=== PATIENT | male | born 1975 | race Caucasian/White ===

== ENCOUNTER 2016-10-26 22:52 | Inpatient (IN) | payer OTHER ==
[~2016-10-26] VITALS: Ht 185.4 cm; Wt 83.9 kg
[~2016-10-26 22:52] MED LIST: NO REPORTED MEDS
--- NOTE | 2016-10-26 22:52 | NUR ---
TO BED 3 BIB PARAMEDICS C/O SEIZURE, OCCIPITAL HEMATOMA NOTED. RECEIVE PT AAOX4 NO ACUTE DISTRESS NOTED, RESP EVEN AND UNLABORED. PIPILS PERRL, PT ABLE TO MOVE ALL EXTREMITIES WELL WITH BILATERAL EQUAL GEOGRAPHY FACULTY MEMBER. PLACE PT ON CARDIAC MONITORING, CONTINUOUS POX, O2@2L/NC. PLACE PT ON SEIZURE PRECAUTION. SL 18G TO L FOREARM CHEMICAL PROCESSING TECHNICIAN. ER MD AT BEDSIDE TO EVAL PT WITH ORDERS RECEIVED. WILL CARRY OUT ORDERS.
[2016-10-26] MEDS ORDERED: phenytoin SODIUM IV 1,000 MG in IV NS 0.9% 100 ML IV ONE (23:00)
[2016-10-26] MEDS ORDERED: phenytoin SODIUM IV 250 MG/5 ML VIAL IV ONE ×2 (23:07→23:08)
[2016-10-26] MEDS ORDERED: IV NS 0.9% 100 ML IV ONE (23:08)
[2016-10-26] MEDS ORDERED: IV NS 0.9% 500 ML IV ONE (23:08)
[2016-10-26] MEDS ORDERED: IV SET PRIMARY PUMP SET 1 EA INFUS.SET MC ONE (23:08)
[2016-10-26] MEDS ORDERED: IV FILTER 5 MICRON 1 EA INFUS.SET MC ONE (23:10)
[2016-10-26 23:28] LABS: EOSINOPHILS # (AUTO) 0.1 /CMM (0.0-0.7); EOSINOPHILS % (AUTO) 0.6 % (0.0-6.0); HEMATOCRIT 38 % (39-51); HEMOGLOBIN 12.7 g/dL (13.5-17.5); LYMPHOCYTES # (AUTO) 0.4 /CMM (0.8-4.8); LYMPHOCYTES % (AUTO) 3.7 % (20.0-44.0); MEAN CORPUSCULAR HEMOGLOBIN 31 PG (26.0-33.0); MEAN CORPUSCULAR HGB CONC 34 g/dl (31.0-36.0); MEAN CORPUSCULAR VOLUME 93 fL (80-96); MONOCYTES # (AUTO) 0.6 /CMM (0.1-1.30); MONOCYTES % (AUTO) 5.1 % (2.0-12.0); NEUTROPHILS # (AUTO) 10.9 /CMM (1.8-8.9); NEUTROPHILS % (AUTO) 90.6 % (43.0-81.0); PLATELET COUNT (AUTO) 93 /CMM (150-450); RDW COEFFICIENT OF VARIATION 14.8 (11.5-15.0); RED BLOOD CELL COUNT(AUTO) 4.07 MIL/uL (4.5-6.0)
[2016-10-26] MEDS ORDERED: IV NS 0.9% 500 ML BAG IV ONE (23:30)
[2016-10-26 23:35] LABS: CALCIUM, SERUM 8.9 mg/dL (8.5-10.1); CREATININE 0.9 mg/dL (0.6-1.3); POTASSIUM 3.7 mmol/L (3.5-5.1)
--- NOTE | 2016-10-26 23:39 | NUR ---
PT TRANSPORTED TO RADIOLOGY FOR CT HEAD AND CT CERVICAL SPINE.
[2016-10-26 23:41] LABS: ALBUMIN 4.2 g/dL (3.4-5.0); BILIRUBIN,DIRECT 0.4 mg/dL (0.0-0.2); BILIRUBIN,TOTAL 1.1 mg/dL (0.2-1.0); TOTAL PROTEIN, SERUM 8.3 g/dL (6.4-8.2)
--- NOTE | 2016-10-27 | NUR ---
PT BACK FROM RADIOLOGY. PENDING CT RESULTS.
[2016-10-27 00:10] LABS: LYMPHOCYTES % (MANUAL) 5 % (16-48); MONOCYTES % (MANUAL) 8 % (0-11.0); NEUTROPHILS % (MANUAL) 87 (42-76)
[2016-10-27] MEDS ORDERED: LORAZEPAM INJ 2 MG/ML VIAL ONE ×2 (00:12→05:35)
--- NOTE | 2016-10-27 00:13 | NUR ---
NOTED PT HAVING SEIZURE, ER MD MADE AWARE. ODERS RECEIVED.
--- NOTE | 2016-10-27 00:17 | NUR ---
PT MEDICATED BY RN PER ER MD ORDER.
[2016-10-27 00:54] LABS: APPEARANCE,URINE CLEAR (CLEAR); BILIRUBIN,URINE NEGATIVE (NEGATIVE); BLOOD, URINE 2+ Ery/uL (NEGATIVE); COLOR,URINE YELLOW (YELLOW); KETONES,URINE TRACE (NEGATIVE); LEUKOCYTE ESTERASE ,URINE NEGATIVE (NEGATIVE); NITRITE, URINE NEGATIVE (NEGATIVE); PROTEIN,URINE 2+ mg/dl (NEGATIVE); UGLUCOSE NEGATIVE (NEGATIVE); UROBILINOGEN,URINE 0.2 EU/dL (0.2)
[2016-10-27] MEDS ORDERED: LORAZEPAM INJ 2 MG/ML VIAL IV ONE (01:00)
--- NOTE | 2016-10-27 01:00 | NUR ---
ER SPOKE TO RADIOLOGIST REGARDING CT HEAD RESULT.
[2016-10-27 01:06] LABS: BACTERIA,URINE None seen /HPF (None Seen); MUCUS,URINE Few /LPF (None Seen); SQUAMOUS EPITHELIAL CELL,UR Rare /HPF (None Seen); WBC,URINE NONE SEEN /HPF (0-3)
--- NOTE | 2016-10-27 01:21 | NUR ---
PANEL PAGED PER ER MD ORDER.
--- NOTE | 2016-10-27 01:39 | NUR ---
REPORT CALLED TO TELE 1 GAVI RUCKER. PENDING HOSPITAL ADMISSION.
--- NOTE | 2016-10-27 02:15 | NUR ---
BERENICE RN INITIAL NOTE RECEIVED REPORT FROM ED ER NURSE. PT ARRIVED VIA GURNEY WITH EMT. PT IN BED. AT BEDSIDE. PT IS A/O X4 BUT SLOW TO RESPOND. PT HAS A HEMATOMA ON OCCIPITAL HEAD, PICTURE TAKEN AND REDRESS. PT HAS A LOW GRADE TEMP 100.3, WILL REQUEST ORDERS. LUNGS CLEAR. BOWEL SOUNDS PRESENT. IV PATENT AND INTACT. PULSES PRESENT. BED IN LOW LOCKED POSITION. CALL LIGHT WITHIN REACH. WILL CONTINUE TO MONITOR. WILL BRING IN MED LIST FROM HOME LATER, PT STATES HE TAKES MEDICATION FOR HTN, DEPRESSION, SLEEP, AND GERD; NAMES AND DOSES UNKNOWN.
[2016-10-27 02:20] VITALS: BP 153/88
[2016-10-27] MEDS ORDERED: HYDROCODONE/APAP 5/325MG 1 EACH TABLET PO PRN (03:00)
[2016-10-27] MEDS ORDERED: ONDANSETRON HCL/PF 4 MG/2 ML VIAL IVP PRN (03:00)
[2016-10-27] MEDS ORDERED: MAGNESIUM HYDROXIDE 30 ML UDC PO PRN (03:00)
[2016-10-27] MEDS ORDERED: Z GUARD REMEDY 2 OZ OINT TP PRN (03:00)
[2016-10-27] MEDS ORDERED: LORAZEPAM INJ 2 MG/ML VIAL IV PRN ×2 (03:00→12:30)
[2016-10-27] MEDS ORDERED: MAG HYDROX/AL HYDROX/SIMETH 30 ML UDC PO PRN (03:00)
[2016-10-27] MEDS ORDERED: ZOLPIDEM TARTRATE 5 MG TABLET PO PRN (03:00)
[2016-10-27] MEDS ORDERED: ACETAMINOPHEN 325 MG TABLET PO PRN (03:00)
[2016-10-27] MEDS ORDERED: ACETAMINOPHEN 325 MG TABLET ONE (03:03)
[2016-10-27 04:00] VITALS: BP 144/97
--- NOTE | 2016-10-27 05:30 | NUR ---
BERENICE RN PT CONTINUES TO HAVE FEVER 100.3. PROVIDED COOLING MEASURES. ATIVAN WILL BE ADMINISTERED FOR SHIVERING. WILL CONTINUE TO MONITOR.
--- NOTE | 2016-10-27 06:35 | NUR ---
NON ADMIN- FOR PATIENT SAFETY.
[2016-10-27 08:00] VITALS: BP 153/95
[2016-10-27] MEDS: PANTOPRAZOLE 40 MG TABLET.DR PO SCH (08:38)
--- NOTE | 2016-10-27 08:48 | NUR ---
RN BERENICE PATIENT CONTINUOUS TREMBLING EPISODE NOTED HE IS OK AT THE MOMENT VERBALIZED BY THE PATIENT NO OTHER PROBLEM SEEN FOR THE MEANTIME
[2016-10-27] MEDS ORDERED: METO25TA20 PO (11:24)
[2016-10-27] MEDS ORDERED: PANT40TA4 PO (11:24)
[2016-10-27] MEDS ORDERED: GABA-532 PO (11:24)
[2016-10-27] MEDS ORDERED: PENT400T2 PO (11:24)
[2016-10-27] MEDS ORDERED: HYDR-3028 PO (11:24)
[2016-10-27] MEDS ORDERED: [UNRECOGNIZED DRUG - CODE] PO (11:25)
[2016-10-27 12:00] VITALS: BP 147/99
[2016-10-27] MEDS ORDERED: IV NS 0.9% 1,000 ML BAG IV PRN (12:30)
[2016-10-27] MEDS ORDERED: PANTOPRAZOLE 40 MG TABLET.DR PO SCH (12:30)
[2016-10-27] MEDS ORDERED: hydrOXYzine PAMOATE 25 MG CAPSULE PO PRN (12:30)
[2016-10-27] MEDS ORDERED: IV SET PRIMARY PUMP SET 1 EA INFUS.SET MC ONE (13:11)
[2016-10-27] MEDS: GABAPENTIN 100 MG CAPSULE PO SCH ×2 (13:20→16:39)
[2016-10-27] MEDS: PENTOXIFYLLINE 400 MG TABLET.SA PO SCH ×2 (13:20→16:39)
[2016-10-27] MEDS: predniSONE 20 MG TABLET PO SCH (13:20)
[2016-10-27] MEDS: IV NS 0.9% 1,000 ML IV PRN (13:20)
[2016-10-27] MEDS: THIAMINE HCL 100 MG TABLET PO SCH (13:21)
[2016-10-27] MEDS ORDERED: METOPROLOL TARTRATE 25 MG TABLET PO STA (15:46)
[2016-10-27 16:00] VITALS: BP 152/107
--- NOTE | 2016-10-27 19:15 | NUR ---
RN INITIAL NOTES PT IS IN BED, NO COMPLAINTS OF PAIN, A/O X3, FAMILY AT BEDSIDE. LFA IV SITE IS FLUSHED AND PATENT, PT ABLE IS ABLE TO MOVE ALL FOUR EXTREMITIES, INDEPENDENTLY, WILL MONITOR CLOSELY FOR ANY SEIZURE ACTIVITY, BED LOCKED AND IN LOWEST POSITION, CALL LIGHTS WITHIN REACH.
[2016-10-27 20:00] VITALS: BP 143/91
--- NOTE | 2016-10-27 20:30 | NUR ---
RN NOTES REPORT GIVEN TO OSCAR WALLACE RN.
[2016-10-28] VITALS: BP 135/98
[2016-10-28] MEDS: IV NS 0.9% 1,000 ML IV PRN (03:12)
[2016-10-28 04:00] VITALS: BP 150/78
--- NOTE | 2016-10-28 06:18 | NUR ---
RN CLOSING NOTES PT IS IN BED, NO COMPLAINTS OF PAIN, A/O X3, FAMILY AT BEDSIDE. LFA IV SITE IS FLUSHED AND PATENT, PT ABLE IS ABLE TO MOVE ALL FOUR EXTREMITIES, INDEPENDENTLY, WILL MONITOR CLOSELY FOR ANY SEIZURE ACTIVITY, BED LOCKED AND IN LOWEST POSITION, CALL LIGHTS WITHIN REACH.
[2016-10-28] MEDS: PANTOPRAZOLE 40 MG TABLET.DR PO SCH (06:43)
--- NOTE | 2016-10-28 06:58 | NUR ---
PT NOTED WITH EPISODES OF CONFUSION ,TAKING OFF MAPILEX CLEAN DRESSING OFF HIS OCCIPITAL AREA, RISK AND BENEFIT EXPLAINED OFFERED X3, REQUESTED TO REMOVE IV FLUIDS TEMPORALIY AT THIS TIME, WILL ENDORSE TO AM SHIFT TO PLACE IV FLUIDS BACK ON PT WHEN PT IS READY.
--- NOTE | 2016-10-28 07:25 | NUR ---
RN MS NOTES PATIENT IN BED, ALERT AND ORIENTED, FOUND PATIENT PLAYING WITH THE TELE MONITOR, INSISTING THAT HE WILL GO HOME TODAY, PATIENT APPEARS TO BE RESTLESS, WALKING AROUND THE ROOM, ENCOURAGED PATIENT TO STAY IN BED, AND TO CALL FOR ASSISTANCE FOR SAFETY REASONS, CALL LIGHT PLACED WITHIN REACH, WILL CONTINUE TO MONITOR.
[2016-10-28 07:37] LABS: BASOPHILS % (AUTO) 0.2 % (0.0-2.0); EOSINOPHILS # (AUTO) 0.1 /CMM (0.0-0.7); EOSINOPHILS % (AUTO) 0.6 % (0.0-6.0); HEMATOCRIT 40 % (39-51); HEMOGLOBIN 13.6 g/dL (13.5-17.5); LYMPHOCYTES % (AUTO) 7.5 % (20.0-44.0); MEAN CORPUSCULAR HEMOGLOBIN 32 PG (26.0-33.0); MEAN CORPUSCULAR HGB CONC 34 g/dl (31.0-36.0); MEAN CORPUSCULAR VOLUME 93 fL (80-96); MONOCYTES # (AUTO) 1.3 /CMM (0.1-1.30); NEUTROPHILS # (AUTO) 11.5 /CMM (1.8-8.9); NEUTROPHILS % (AUTO) 82.7 % (43.0-81.0); PLATELET COUNT (AUTO) 119 /CMM (150-450); RED BLOOD CELL COUNT(AUTO) 4.28 MIL/uL (4.5-6.0); WHITE BLOOD COUNT (AUTO) 13.9 K/uL (4.3-11.0)
[2016-10-28 07:55] LABS: CALCIUM, SERUM 9.4 mg/dL (8.5-10.1); CREATININE 0.8 mg/dL (0.6-1.3); MAGNESIUM 2.1 mg/dL (1.8-2.4); PHOSPHORUS 2.2 mg/dL (2.5-4.9); POTASSIUM 3.1 mmol/L (3.5-5.1)
[2016-10-28 08:00] VITALS: BP 122/89
[2016-10-28 08:21] VITALS: BP 127/97
[2016-10-28] MEDS: PENTOXIFYLLINE 400 MG TABLET.SA PO SCH (08:22)
[2016-10-28] MEDS: GABAPENTIN 100 MG CAPSULE PO SCH (08:22)
[2016-10-28] MEDS: THIAMINE HCL 100 MG TABLET PO SCH (08:22)
[2016-10-28] MEDS: predniSONE 20 MG TABLET PO SCH (08:22)
[2016-10-28 08:34] LABS: INR 1.15 (0.87-1.13); PROTHROMBIN TIME 12.4 SECS (9.5-12.7)
[2016-10-28] MEDS ORDERED: METOPROLOL TARTRATE 25 MG TABLET PO SCH (09:00)
--- NOTE | 2016-10-28 09:53 | NUR ---
C PYTHON DEVELOPER/AMA PATIENT ALERT AND ORIENTED, CALM AT THIS TIME, BUT INSISTING ON LEAVING AGAINST MEDICAL ADVICE, ASHLY VIEIRA TIRE REPAIRMAN MADE AWARE, PER TIRE REPAIRMAN, ASK IF HE CAN WAIT FOR ME, IF NOT ITS FINE, PATIENT ASKED AND STATED "NO I DONT WANT TO WAIT, I HAVE TO GO SOMEWHERE" EXPLAINED RISKS AND BENEFITS, EDUCATED ABOUT POSSIBILITY OF HAVING SEIZURE EPISODES AGAIN, PATIENT VERBALIZED UNDERSTANDING, AND IS TAKING RESPONSIBILITY ONCE HE LEAVES THE HOSPITAL. PATIENT SIGNED AMA PAPERWORKS, PIV REMOVED, ALL BELONGINGS AND MEDICATIONS GIVEN TO PATIENT, LEFT THE FACILITY AT 0953.
[2016-10-28] MEDS ORDERED: POTASSIUM CHLORIDE 20 MEQ TAB.PRT.SR PO SCH (10:30)
== END 2016-10-28 09:53 | disposition left against medical advice (07) | DRG 55 ==
LOC: ER 22:53 → TELE-TD 10-27 01:43 → TELE1 10-27 10:03
PROVIDERS: ADMIT Internal Medicine; ATTEND Internal Medicine
DX: S06.5X0A Traumatic subdural hemorrhage without loss of consciousness, initial encounter (principal); D69.59 Other secondary thrombocytopenia; E46 Unspecified protein-calorie malnutrition; E87.1 Hypo-osmolality and hyponatremia; K70.10 Alcoholic hepatitis without ascites; F10.239 Alcohol dependence with withdrawal, unspecified; I10 Essential (primary) hypertension; S00.03XA Contusion of scalp, initial encounter; D64.9 Anemia, unspecified; G40.509 Epileptic seizures related to external causes, not intractable, without status epilepticus; D72.829 Elevated white blood cell count, unspecified; Y90.0 Blood alcohol level of less than 20 mg/100 ml; F14.90 Cocaine use, unspecified, uncomplicated; R74.8 Abnormal levels of other serum enzymes; W18.30XA Fall on same level, unspecified, initial encounter; Y93.9 Activity, unspecified; Y92.9 Unspecified place or not applicable; R74.0 Nonspecific elevation of levels of transaminase and lactic acid dehydrogenase [LDH]
CPT/HCPCS: 36415; 70450-TC; 71010-TC; 72125-TC; 80048-TC; 80076-TC; 80305; 81000-TC; 82962-TC; 83735-TC; 84100-TC; 85025-TC; 85610-TC; 85730-TC; 87081-TC; A4606; A6403; G0480; J1165; J2060; J7030; J7040; Z7610

== ENCOUNTER 2016-10-29 09:41 | Emergency (ER) | payer OTHER ==
[~2016-10-29] VITALS: Ht 185.4 cm; Wt 79.4 kg
[~2016-10-29 09:41] MED LIST changes: +GABA-532 PO; +HYDR-3028 PO; +METO25TA20 PO; -NO REPORTED MEDS; +PANT40TA4 PO; +PENT400T2 PO; +[UNRECOGNIZED DRUG - CODE] PO
--- NOTE | 2016-10-29 09:45 | NUR ---
PT TO ED ROOM 08. REQUESTING RESOURCES FOR ALCOHOL DETOX. A/A/O. AMBULATORY W/ STEADY GAIT AND WITHOUT ASSISTANCE. SIDE RAILS UP. HOB ELEVATED. SEEN AND EVALUATED BY ED PROVIDER.
--- NOTE | 2016-10-29 10:01 | NUR ---
Patient discharged to self care in stable condition. Written and verbal after care instructions given. Patient verbalizes understanding of instruction. Ambulatory with a steady gait.
[2016-10-29 10:06] VITALS: BP 168/115
== END 2016-10-29 10:17 | disposition home or self-care (01) ==
LOC: ER 09:42
DX: F10.239 Alcohol dependence with withdrawal, unspecified (principal); I10 Essential (primary) hypertension; K74.60 Unspecified cirrhosis of liver
CPT/HCPCS: A4606; Z7610

== ENCOUNTER 2019-12-24 12:37 | Inpatient (IN) | payer OTHER ==
[2019-12-24] VITALS (21 sets, daily range): BP systolic 131–156; BP diastolic 48–107
[~2019-12-24] VITALS: Ht 182.9 cm; Wt 93.4 kg
[~2019-12-24 12:37] MED LIST changes: -HYDR-3028 PO; +HYDR50TA61 PO; +PENT400T17 PO; -PENT400T2 PO
--- NOTE | 2019-12-24 12:42 | NUR ---
PT BIBRA FROM HOME TO ER BED . PER EMS REPORT, FAMILY CALLED NOTICED THE PATIENT HAVING CONVULSION. PT HAS HISTORY OF ALCOHOL ABUSE. PT IS AWAKE OPERATIONS TRAINER. C/O GENERALIZED FEELING OF "BEING SICK" NAUSEA, VOMITTED 3X THIS MORNING. STATES LAST ALCOHOL CONSUMPTION WAS YESTERDAY.
--- NOTE | 2019-12-24 12:50 | NUR ---
IV LINE STARTED BLOOD DRAWN AND SENT TO LAB.
--- NOTE | 2019-12-24 12:59 | NUR ---
DR MONTOYA AT BEDSIDE FOR EVAL.
[2019-12-24] MEDS ORDERED: IV NS 0.9% 1,000 ML BAG IV ONE (13:00)
[2019-12-24] MEDS ORDERED: LORAZEPAM INJ 2 MG/ML VIAL IVP ONE (13:00)
[2019-12-24 13:04] LABS: MEAN CORPUSCULAR VOLUME 77 fL (80-96); NEUTROPHILS # (AUTO) 4.8 /CMM (1.8-8.9)
[2019-12-24] MEDS ORDERED: LORAZEPAM INJ 2 MG/ML VIAL ONE ×2 (13:04→14:11)
[2019-12-24 13:07] LABS: BASOPHILS # (AUTO) 0.1 /CMM (0.0-0.2); EOSINOPHILS % (AUTO) 1.1 % (0.0-6.0); LYMPHOCYTES # (AUTO) 1.5 /CMM (0.8-4.8); LYMPHOCYTES % (AUTO) 20.9 % (20.0-44.0); MEAN CORPUSCULAR HGB CONC 31 g/dl (31.0-36.0); MONOCYTES # (AUTO) 0.8 /CMM (0.1-1.30); PLATELET COUNT (AUTO) 113 /CMM (150-450); RED BLOOD CELL COUNT(AUTO) 2.41 MIL/uL (4.5-6.0); WHITE BLOOD COUNT (AUTO) 7.3 K/uL (4.3-11.0)
[2019-12-24 13:09] LABS: HEMATOCRIT 19 % (39-51); HEMOGLOBIN 5.7 g/dL (13.5-17.5)
--- NOTE | 2019-12-24 13:16 | NUR ---
PT TO RADIOLOGY FOR HEAD CT SCAN VIA [facility].
[2019-12-24] MEDS ORDERED: ASCO-352 PO (13:19)
[2019-12-24] MEDS ORDERED: MULT1TAB69 PO (13:19)
[2019-12-24] MEDS ORDERED: FERR325T6 PO (13:19)
[2019-12-24] MEDS ORDERED: LISI10TA5 PO (13:19)
[2019-12-24] MEDS ORDERED: METO-357 PO (13:19)
[2019-12-24] MEDS ORDERED: ATOR40TA PO (13:19)
[2019-12-24 13:22] LABS: BILIRUBIN,DIRECT 0.4 mg/dL (0.0-0.2); CALCIUM, SERUM 8.4 mg/dL (8.5-10.1); POTASSIUM 3.7 mmol/L (3.5-5.1); TOTAL PROTEIN, SERUM 7.5 g/dL (6.4-8.2)
[2019-12-24 13:28] LABS: LYMPHOCYTES % (MANUAL) 17 % (16-48); MONOCYTES % (MANUAL) 8 % (0-11.0); NEUTROPHILS % (MANUAL) 75 (42-76)
--- NOTE | 2019-12-24 13:41 | NUR ---
CALLED NURSING SUP REQUESTING BED.
[2019-12-24] MEDS ORDERED: PANTOPRAZOLE 40 MG VIAL ONE (13:58)
[2019-12-24] MEDS ORDERED: OCTREOTIDE 1,250 MCG in IV NS 0.9% 247.5 ML IV PRN (14:00)
[2019-12-24] MEDS ORDERED: OCTREOTIDE 50 MCG/ML AMPUL IV ONE (14:00)
[2019-12-24] MEDS ORDERED: PANTOPRAZOLE 80 MG in IV NS 0.9% 100 ML IV ONE (14:00)
[2019-12-24] MEDS ORDERED: OCTREOTIDE 1,250 MCG in IV NS 0.9% 250 ML IV ONE (14:00)
[2019-12-24] MEDS ORDERED: LORAZEPAM INJ 2 MG/ML VIAL IV ONE (14:30)
[2019-12-24] MEDS ORDERED: OCTREOTIDE 50 MCG in IV NS 0.9% 50 ML IJ ONE (14:30)
--- NOTE | 2019-12-24 14:45 | NUR ---
CALLED [employer] PACKAGE LINE RELIEF OPERATOR WAS PAGED.
--- NOTE | 2019-12-24 15:04 | NUR ---
COVID19 RESULT NEGATIVE
--- NOTE | 2019-12-24 15:12 | NUR ---
ICU 254
--- NOTE | 2019-12-24 15:19 | NUR ---
REPORT GIVEN TO ÁNGELA GATICA. AWAITING TRANSFER TO ICU.
[2019-12-24] MEDS ORDERED: HYDROCODONE/APAP 5/325MG TABLET PO PRN (15:30)
[2019-12-24] MEDS ORDERED: ZOLPIDEM TARTRATE 5 MG TABLET PO PRN (15:30)
[2019-12-24] MEDS ORDERED: PANTOPRAZOLE 80 MG in IV NS 0.9% 500 ML IV PRN (15:30)
[2019-12-24] MEDS ORDERED: Z GUARD REMEDY 2 OZ OINT TP PRN (15:30)
[2019-12-24] MEDS ORDERED: ACETAMINOPHEN 325 MG TABLET PO PRN (15:30)
[2019-12-24] MEDS ORDERED: MAG HYDROX/AL HYDROX/SIMETH 30 ML UDC PO PRN (15:30)
[2019-12-24] MEDS ORDERED: ONDANSETRON HCL/PF 4 MG/2 ML VIAL IVP PRN (15:30)
[2019-12-24] MEDS ORDERED: MAGNESIUM HYDROXIDE 30 ML UDC PO PRN (15:30)
[2019-12-24] MEDS: OCTREOTIDE 1,250 MCG in IV NS 0.9% 247.5 ML IV PRN (16:30)
[2019-12-24] MEDS: IV NS 0.9% 1,000 ML IV PRN (16:30)
--- NOTE | 2019-12-24 16:30 | NUR ---
received pt from ER, s/p GI bleed, a/o x4, follows commands, ST, on RA, lungs are clear, no edema, NPO, on Sandostatin drip, blood transfusion started for h/h .11/28, v/s stable, no pain, one dark stool, urinates in urinal, pt turns and repositions by himself.
--- NOTE | 2019-12-24 19:30 | NUR ---
RN OPENING NOTES: PATIENT AAOX4. NO ACUTE DISTRESS NOTED. NO C/O PAIN. 1 PRBC BLOOD TRANSFUSION COMPLETED. IN STABLE CONDITION. NO ADVERSE REACTIONS AT THIS TIME. NO S/S OF BLEEDING. DENIES N/V. UNLABORED BREATHING. ON BEDSIDE MONITOR; SINUS TACHY. AFEBRILE. PATIENT IS BLADDER/BOWEL CONTINENT AND USES URINAL AND BEDSIDE COMMODE. LEFT FOREARM G20 AND RIGHT HAND G18 C/D/I; FLUSHING WELL. SAFETY PRECAUTIONS IMPLEMENTED. BED LOCKED, LOW POSITION, BILATERAL SIDE RAILS X 2 UP, HOB ELEVATED. CALL LIGHT WITHIN REACH. WILL CONT. TO MONITOR.
--- NOTE | 2019-12-24 21:03 | NUR ---
RN NOTE: AT 2102, PATIENT STARTED 2ND UNIT OF PRBC ORDERED. WITNESSED BY ANOTHER RN KARLEY. VITAL SIGNS CHECKED. NO S/S OF ADVERSE REACTIONS NOTED AT THIS TIME. WILL CONT. TO MONITOR.
--- NOTE | 2019-12-24 23:22 | NUR ---
RN NOTE: PATIENT HAS SCHEDULED PROTONIX IV AT 2300; PATIENT RECEIVED PROTONIX 80 MG IV IN ER AROUND 1400. JOSUE PHARMACIST MADE AWARE. PER PHARMACIST, IT IS STILL OKAY TO GIVE PROTONIX. CHARGE NURSE AWARE.
[2019-12-24] MEDS: PANTOPRAZOLE 40 MG VIAL IV SCH (23:35)
[2019-12-24] MEDS: LORAZEPAM INJ 2 MG/ML VIAL IV PRN (23:35)
[2019-12-25] VITALS (34 sets, daily range): BP systolic 126–174; BP diastolic 48–130
--- NOTE | 2019-12-25 00:02 | NUR ---
RN NOTE: 2ND UNIT OF PRBC TRANSFUSION COMPLETED. NO ADVERSE REACTION NOTED AT THIS TIME. WILL CONT. TO MONITOR.
[2019-12-25 01:17] LABS: HEMOGLOBIN 7.1 g/dL (13.5-17.5)
[2019-12-25] MEDS: OCTREOTIDE 1,250 MCG in IV NS 0.9% 247.5 ML IV PRN ×3 (01:51→20:59)
[2019-12-25 04:37] LABS: BASOPHILS % (AUTO) 0.3 % (0.0-2.0); EOSINOPHILS % (AUTO) 0.4 % (0.0-6.0); HEMATOCRIT 21 % (39-51); LYMPHOCYTES # (AUTO) 0.7 /CMM (0.8-4.8); LYMPHOCYTES % (AUTO) 10.7 % (20.0-44.0); MEAN CORPUSCULAR HGB CONC 33 g/dl (31.0-36.0); MEAN CORPUSCULAR VOLUME 79 fL (80-96); MONOCYTES % (AUTO) 15.3 % (2.0-12.0); NEUTROPHILS # (AUTO) 4.6 /CMM (1.8-8.9); NEUTROPHILS % (AUTO) 73.3 % (43.0-81.0); PLATELET COUNT (AUTO) 87 /CMM (150-450); RED BLOOD CELL COUNT(AUTO) 2.63 MIL/uL (4.5-6.0); WHITE BLOOD COUNT (AUTO) 6.2 K/uL (4.3-11.0)
[2019-12-25 05:11] LABS: HEMOGLOBIN 6.8 g/dL (13.5-17.5)
[2019-12-25 05:12] LABS: LYMPHOCYTES % (MANUAL) 6 % (16-48); MONOCYTES % (MANUAL) 9 % (0-11.0); NEUTROPHILS % (MANUAL) 85 (42-76)
[2019-12-25 05:17] LABS: ALBUMIN 3.4 g/dL (3.4-5.0); BILIRUBIN,DIRECT 0.5 mg/dL (0.0-0.2); BILIRUBIN,TOTAL 1.5 mg/dL (0.2-1.0); CALCIUM, SERUM 7.7 mg/dL (8.5-10.1); CREATININE 0.8 mg/dL (0.6-1.3); MAGNESIUM 1.8 mg/dL (1.8-2.4); PHOSPHORUS 2.7 mg/dL (2.5-4.9); POTASSIUM 3.8 mmol/L (3.5-5.1); TOTAL PROTEIN, SERUM 6.7 g/dL (6.4-8.2)
[2019-12-25 05:48] LABS: THYROID STIMULATING HORMONE 0.167 uIU/mL (0.358-3.74)
--- NOTE | 2019-12-25 05:50 | NUR ---
RN NOTE: RECEIVED CRITICAL H/H 6.12/31. CHARGE NURSE AWARE. STANDING ORDER TO TRANSFUSE PRBC AND KEEP HGB <7. Addendum: 12/26/19 at 2248 by JAM HEWITT RN CORRECTION: KEEP HGB >7.
[2019-12-25] MEDS: IV NS 0.9% 1,000 ML IV PRN ×2 (06:21→19:37)
--- NOTE | 2019-12-25 06:56 | NUR ---
RN CLOSING NOTES: PATIENT AWAKE AND VERBALLY RESPONSIVE. NO RESPIRATORY DISTRESS. NO C/O PAIN. CONT. ON SANDOSTATIN DRIP AT 50 MLS/HR. PATIENT NEEDS ANOTHER BLOOD TRANSFUSION. NO ACTIVE BLEEDING AT THIS TIME. ENDORSE TO AM RN FOR CONTINUITY OF CARE.
--- NOTE | 2019-12-25 08:14 | NUR ---
received pt from mold shifter, s/p GI bleed, a/o x4, follows commands, ST, SR, on RA, sat well, lungs are clear, no edema, receiving blood transfusion for h/h of 6.12/31, on Sandostatin drip, urinated in urinal, NPO, no dark/bloody stool since 12/23, v/s stable, no pain, pt turns and repositions by himself.
[2019-12-25] MEDS: PANTOPRAZOLE 40 MG VIAL IV SCH ×2 (10:08→21:21)
--- NOTE | 2019-12-25 10:58 | NUR ---
1 unit of PRBCs transfused, v/s stable, no pain, no transfusion reactions.
[2019-12-25 12:19] LABS: HEMOGLOBIN 8.1 g/dL (13.5-17.5)
[2019-12-25] MEDS ORDERED: hydrALAZINE HCL IV 20 MG VIAL IV PRN (13:30)
--- NOTE | 2019-12-25 15:11 | NUR ---
pt transferred to [facility], v/s stable, no pain.
--- NOTE | 2019-12-25 15:15 | NUR ---
COTTAGE PARENT NOTES Received Patient resting in bed. A/O x 4. VS stable with no acute distress. Breathing even and unlabored on room air with no respiratory distress. Denies pain. No signs and symptoms of pain. Telemonitor in place and patent reading Sinus Tach with HR-103. 20g PIV on LFA clean, intact, patent and flushing well. 18g PIV on right hand clean, intact, patent and flushing well with NS infusing at 100ml/hr and Sandostatin infusing at 10ml/hr. Safety precautions in place. Bed locked and set to lowest position with side rails x 2 up. All needs rendered at this time. Call light within reach. Will continue to monitor.
[2019-12-25] MEDS: ATORVASTATIN 40 MG TABLET PO SCH (17:31)
--- NOTE | 2019-12-25 19:01 | NUR ---
MANAGING ATTORNEY CLOSING NOTES Received Patient resting in bed. A/O x 4. VS stable with no acute distress. Breathing even and unlabored on room air with no respiratory distress. Denies pain. No signs and symptoms of pain. Telemonitor in place and patent reading Sinus Tach with HR-122. 20g PIV on LFA clean, intact, patent and flushing well. 18g PIV on right hand clean, intact, patent and flushing well with NS infusing at 100ml/hr and Sandostatin infusing at 10ml/hr. Safety precautions in place. Bed locked and set to lowest position with side rails x 2 up. All needs rendered at this time. Call light within reach. Will endorse plan of care to oncoming shift.
--- NOTE | 2019-12-25 19:25 | NUR ---
ENGLISH PROFESSOR OPENING NOTES: RECEIVED PATIENT IN BED, AWAKE A/O X4. NO SOB NOTED. NO COMPLAIN OF PAIN. CALL LIGHT WITHIN REACH. BED IN LOWEST AND LOCKED POSITION. INSTRUCTED PATIENT TO CALL WHEN OOB FOR ASSISTANCE,PATIENT VERBALIZED" NO I CAN WALK, I'VE BEEN WALKING BY MYSELF".NPO,PATIENT INSTRUCTED AND PRACTICE DIRECTOR AWARE.
--- NOTE | 2019-12-25 21:06 | NUR ---
RECEIVED A CALL FROM PHARMACY NAMED NANCY, WITH THE INSTRUCTION TO HANG A NEW BAG OF SANDOSTATIN, DONE. PATIENT JUST FINISHED BEDBATH BY HIMSELF, OFFERED HELP PATIENT DECLINED. PATIENT WASHED HIS SOCKS, OFFERED A BAG,PATIENT REFUSED. SOME WATER SPILLS ON THE FLOOR, CLEANED IT AND DRIED.
--- NOTE | 2019-12-25 21:51 | NUR ---
BP RECHECKED= 137/102, INFORMED DR URENA, WAITING FOR THE RESPONSE.
--- NOTE | 2019-12-25 21:53 | NUR ---
RESPONDED, JUST TO MONITOR. NO ORDER.
[2019-12-26] VITALS: BP 145/103
[2019-12-26 04:00] VITALS: BP 133/106
[2019-12-26] MEDS: IV NS 0.9% 1,000 ML IV PRN ×2 (06:00→21:10)
--- NOTE | 2019-12-26 06:14 | NUR ---
RECORDINGS LIBRARIAN CLOSING NOTES: PATIENT IN BED, AWAKE. A/O X4. AMBULATORY. STEADY GAIT. CALL LIGHT WITHIN REACH.BED IN LOWEST AND LOCKED POSITION. PATIENT WAS UPSET BECAUSE HE WANTS TO HAVE SOMETHING TO DRINK, EXPLAINED NPO AND THE PURPOSE OF IT. DR MEJIA ORDERED PATIENT CAN HAVE VERY SMALL AMOUNT OF ICE CHIPS, EXPLAINED TO THE PATIENT, VERBALIZED UNDERSTANDING.NO BLEEDING NOTED. PATIENT SHOWING SOME LITTLE TREMORS.
[2019-12-26 07:40] LABS: BASOPHILS # (AUTO) 0.1 /CMM (0.0-0.2); BASOPHILS % (AUTO) 0.8 % (0.0-2.0); EOSINOPHILS % (AUTO) 1.7 % (0.0-6.0); HEMATOCRIT 25 % (39-51); HEMOGLOBIN 8.1 g/dL (13.5-17.5); LYMPHOCYTES # (AUTO) 0.7 /CMM (0.8-4.8); MEAN CORPUSCULAR HGB CONC 32 g/dl (31.0-36.0); MEAN CORPUSCULAR VOLUME 81 fL (80-96); MONOCYTES # (AUTO) 1.1 /CMM (0.1-1.30); NEUTROPHILS # (AUTO) 4.7 /CMM (1.8-8.9); NEUTROPHILS % (AUTO) 70.5 % (43.0-81.0); PLATELET COUNT (AUTO) 118 /CMM (150-450); RED BLOOD CELL COUNT(AUTO) 3.13 MIL/uL (4.5-6.0); WHITE BLOOD COUNT (AUTO) 6.6 K/uL (4.3-11.0)
--- NOTE | 2019-12-26 07:44 | NUR ---
PAPER SALES REPRESENTATIVE OPENING NOTES PATIENT IS A/0 X 4 AWAKE WITH NO SIGNS OF DISTRESS IN ROOM AIR. IV R HAND #18G RUNNING NS AT 100 MLS/HR AND L FA #20G INTACT SL. NO COMPLAINT OF PAIN OR DISCOMFORT AT THIS TIME. SAFETY MEASURES ARE APPLIED BED IS LOCKED AND LOW POSITION, SIDE RAILS UP X 2 FOR SAFETY. CALL LIGHT WITHIN REACH WILL CONTINUE TO MONITOR.
[2019-12-26 08:00] VITALS: BP 145/112
[2019-12-26 08:03] LABS: CALCIUM, SERUM 8.2 mg/dL (8.5-10.1); CREATININE 0.8 mg/dL (0.6-1.3); MAGNESIUM 2.1 mg/dL (1.8-2.4); PHOSPHORUS 2.4 mg/dL (2.5-4.9)
[2019-12-26 08:10] LABS: THYROID STIMULATING HORMONE 0.134 uIU/mL (0.358-3.74); URIC ACID 5.2 mg/dL (2.6-7.2)
[2019-12-26] MEDS: PANTOPRAZOLE 40 MG VIAL IV SCH ×2 (08:50→20:47)
[2019-12-26] MEDS: LORAZEPAM INJ 2 MG/ML VIAL IV PRN (08:51)
[2019-12-26] MEDS: METOPROLOL SUCCINATE 50 MG TAB.SR.24H PO SCH (09:00)
[2019-12-26] MEDS: LISINOPRIL (10MG) 10 MG TABLET PO SCH (09:00)
[2019-12-26] MEDS: ASCORBIC ACID 500 MG TABLET PO SCH (09:00)
--- NOTE | 2019-12-26 09:24 | NUR ---
PATIENT IS NPO INCLUDING PO MEDS DID NOT ADMINISTERED BP MEDS. Addendum: 12/26/19 at 0925 by CODI HAQUE RN WILL CONTINUE TO MONITOR.
[2019-12-26] MEDS: POTASSIUM CL. PREMIX PERIPHER. 50 ML IV SCH ×2 (11:20→13:01)
[2019-12-26] MEDS ORDERED: K PHOS NEUTRAL 250 MG TABLET PO ONE (13:00)
[2019-12-26 13:14] LABS: BAND % (MANUAL) 1 % (0.0-5.0); EOSINOPHILS % (MANUAL) 2 % (0-4); LYMPHOCYTES % (MANUAL) 8 % (16-48); MONOCYTES % (MANUAL) 10 % (0-11.0); NEUTROPHILS % (MANUAL) 79 (42-76)
--- NOTE | 2019-12-26 13:42 | NUR ---
PATIENT UNABLE TO TOLERATE POTASSIUM IV BURNING, DR. SANCHEZ NOTIFIED, ORDERED POTASSIUM PO NOTED AND CARRIED. 2 POTASSIUM BAGS WERE ALREADY GIVEN.
[2019-12-26] MEDS ORDERED: POTASSIUM CHLORIDE 20 MEQ TAB.PRT.SR PO ONE (14:00)
[2019-12-26] MEDS: CHLORDIAZEPOXIDE HCL 25 MG CAPSULE PO SCH ×2 (14:04→22:49)
[2019-12-26 16:00] VITALS: BP 141/96
[2019-12-26] MEDS: ATORVASTATIN 40 MG TABLET PO SCH (18:12)
--- NOTE | 2019-12-26 18:56 | NUR ---
MS RN CLOSING NOTES PATIENT IS A/0 X 4 AWAKE WITH NO SIGNS OF DISTRESS IN ROOM AIR. IV RL FA #22 G NS AT 100 MLS/HR. NO COMPLAINT OF PAIN OR DISCOMFORT AT THIS TIME. PATIENT REMAINED STABLE THROUGH OUT SHIFT. PATIENT KEPT CLEAN AND DRY. ALL NEEDS, CARE, TREATMENT AND MEDICATIONS ADMINISTERED ANTICIPATED PER ORDER. SAFETY MEASURES ARE APPLIED BED IS LOCKED AND LOW POSITION, SIDE RAILS UP X 2 FOR SAFETY. WILL ENDORSE TO THE NEXT SAW HANDLE ASSEMBLER.
--- NOTE | 2019-12-26 19:10 | NUR ---
MS RN OPENING NOTES: RECEIVED PATIENT IN BED, AWAKE. A/O X4. NO SOB NOTED. NO COMPLAIN OF PAIN. CALL LIGHT WITHIN REACH. BED IN LOWEST AND LOCKED POSITION. NPO EXCEPT MEDS, PATIENT AWARE, AND HOUSEKEEPER NANNY AWARE.
[2019-12-26] MEDS: OCTREOTIDE 1,250 MCG in IV NS 0.9% 247.5 ML IV PRN (19:32)
[2019-12-26 20:00] VITALS: BP 160/97
--- NOTE | 2019-12-26 21:44 | NUR ---
CALLED THE PHARMACY RE: LIBRIUM IS NOT AVAILABLE IN THE OMNICELL, ACCORDING TO THE PHARMACY STAFF TO LET THE CHARGE NURSE KNOW, INFORMED VJ VALDIVIA.
[2019-12-27] VITALS (11 sets, daily range): BP systolic 131–151; BP diastolic 83–103
--- NOTE | 2019-12-27 04:58 | NUR ---
PATIENT CLAIMED THAT HE PULLED OUT THE NS IV TUBING, TIP IS INTACT, AND CUT THE SANDOSTATIN TUBING USING A BLADE FROM THE RAZOR, PATIENT SAID THAT HE DESTROYED THE RAZOR SO HE CAN GET THE BLADE FROM IT. NO BLEEDING NOTED. PATIENT SAID THAT HE THREW THE BLADE INTO THE REGULAR TRASH, ADVISED THE PATIENT NOT TO DO THAT,VERBALIZED UNDERSTANDING. CHARGE NURSE SHEA MADE AWARE. IV REINSERTED TO THE RIGHT FOREARM G22 AND CONTINUED THE DRIP AND IVF. BOTH TUBINGS CHANGED.
--- NOTE | 2019-12-27 05:56 | NUR ---
MS RN CLOSING NOTES: PATIENT IN BED AWAKE, A/O X4. NO SOB NOTED. NO COMPLAIN OF PAIN. CALL LIGHT WITHIN REACH. BED IN LOWEST AND LOCKED POSITION. WITH SANDOSTATIN RUNNING AT 10ML/HOUR. NO BLEEDING NOTED.PATIENT IS CALM.
[2019-12-27 06:54] LABS: BASOPHILS # (AUTO) 0.1 /CMM (0.0-0.2); BASOPHILS % (AUTO) 1.2 % (0.0-2.0); HEMATOCRIT 25 % (39-51); HEMOGLOBIN 7.9 g/dL (13.5-17.5); LYMPHOCYTES # (AUTO) 0.6 /CMM (0.8-4.8); LYMPHOCYTES % (AUTO) 12.8 % (20.0-44.0); MEAN CORPUSCULAR HGB CONC 32 g/dl (31.0-36.0); MEAN CORPUSCULAR VOLUME 82 fL (80-96); MONOCYTES # (AUTO) 0.9 /CMM (0.1-1.30); MONOCYTES % (AUTO) 19.6 % (2.0-12.0); NEUTROPHILS % (AUTO) 63.4 % (43.0-81.0); PLATELET COUNT (AUTO) 142 /CMM (150-450); WHITE BLOOD COUNT (AUTO) 4.8 K/uL (4.3-11.0)
[2019-12-27 07:16] LABS: CALCIUM, SERUM 8.5 mg/dL (8.5-10.1); MAGNESIUM 2.2 mg/dL (1.8-2.4); PHOSPHORUS 3.6 mg/dL (2.5-4.9); POTASSIUM 3.2 mmol/L (3.5-5.1)
[2019-12-27 07:31] LABS: THYROID STIMULATING HORMONE 0.343 uIU/mL (0.358-3.74); URIC ACID 6.7 mg/dL (2.6-7.2)
--- NOTE | 2019-12-27 07:38 | NUR ---
MS RN OPENING NOTES PATIENT IS A/0 X 4 AWAKE WITH NO SIGNS OF DISTRESS IN ROOM AIR. IV L FA #22G INTACT NS AT 100 MLS/HR. NO COMPLAINT OF PAIN OR DISCOMFORT AT THIS TIME. NPO EXCEPT MEDS. SAFETY MEASURES ARE APPLIED BED IS LOCKED AND LOW POSITION, SIDE RAILS UP X 2 FOR SAFETY. CALL LIGHT WITHIN REACH WILL CONTINUE TO MONITOR.
[2019-12-27] MEDS: OCTREOTIDE 1,250 MCG in IV NS 0.9% 247.5 ML IV PRN ×2 (08:24→19:58)
[2019-12-27] MEDS: METOPROLOL SUCCINATE 50 MG TAB.SR.24H PO SCH (09:16)
[2019-12-27] MEDS: LISINOPRIL (10MG) 10 MG TABLET PO SCH (09:16)
[2019-12-27] MEDS: ASCORBIC ACID 500 MG TABLET PO SCH (09:16)
[2019-12-27] MEDS: CHLORDIAZEPOXIDE HCL 25 MG CAPSULE PO SCH ×3 (09:16→16:36)
[2019-12-27] MEDS: PANTOPRAZOLE 40 MG VIAL IV SCH ×2 (09:16→21:19)
[2019-12-27] MEDS: POTASSIUM CHLORIDE 20 MEQ TAB.PRT.SR PO SCH ×2 (10:31→12:13)
[2019-12-27] MEDS: IV NS 0.9% 1,000 ML IV PRN (10:38)
--- NOTE | 2019-12-27 12:20 | NUR ---
PATIENT CONSENT FOR EGD, ANESTHESIA AND BLOOD TRANSFUSION SIGNED BY PATIENT AND PRE OP LIST DONE. PATIENT IS A/0X4 WITH NO SIGNS OF DISTRESS IN ROOM AIR. IV L FA #22G INTACT. POTASSIUM REPLACED. LEFT TO OR VIA GURNEY WITH TWO OR NURSES.
[2019-12-27] MEDS ORDERED: MIDAZOLAM HCL 2 MG/2ML VIAL ONE (12:27)
[2019-12-27] MEDS ORDERED: ANESTHESIA TRAY IN PYXIS 1 EA TRAY MC ONE ×3 (12:30→13:27)
[2019-12-27] MEDS ORDERED: hydrALAZINE HCL IV 20 MG VIAL ONE (12:56)
--- NOTE | 2019-12-27 13:15 | NUR ---
POST OP NOTES PATIENT WAS BROUGHT BACK FROM RECOVERY ROOM VIA [facility] A/O X4 ALERT AND ORIENTED. INITIAL VITALS 138/89 P 80 R 18 SPO2 98% TEMPERATURE 98.9 F. NO COMPLAINT OF PAIN AT THIS MOMENT SAFETY MEASURES IN PLACED BED LOCKED LOW POSITION SIDE RAILS UP X 2 FOR SAFETY. CALL LIGHT WITHIN REACH, WILL CONTINUE TO MONITOR.
--- NOTE | 2019-12-27 16:32 | NUR ---
DR. SANCHEZ ORDERED TO CHANGE LIBRIUM DOSE TO 25MG PO TID. NOTED AND CARRIED OUT.
[2019-12-27] MEDS ORDERED: CHLORDIAZEPOXIDE HCL 5 MG CAPSULE PO SCH (17:00)
[2019-12-27] MEDS: ATORVASTATIN 40 MG TABLET PO SCH (18:13)
--- NOTE | 2019-12-27 19:16 | NUR ---
MS RN CLOSING NOTES PATIENT IS A/0 X 4 AWAKE WITH NO SIGNS OF DISTRESS IN ROOM AIR. IV L FA #22G INTACT NS AT 100 MLS/HR. NO COMPLAINT OF PAIN OR DISCOMFORT AT THIS TIME.PATIENT KEPT CLEAN AND DRY. ALL NEEDS, CARE, TREATMENT AND MEDICATIONS ADMINISTERED ANTICIPATED PER ORDER. SAFETY MEASURES ARE APPLIED BED IS LOCKED AND LOW POSITION, SIDE RAILS UP X 2 FOR SAFETY. CALL LIGHT WITHIN REACH. WILL ENDORSE TO THE NEXT HAND HIDE STRETCHER.
--- NOTE | 2019-12-27 19:30 | NUR ---
MS RN OPENING NOTES RECEIVED PATIENT FROM MORNING SHIFT, ALERT AND ORIENTED X 4. VERBALLY RESPONSIVE AND ABLE TO FOLLOW DIRECTIONS. BREATHING REGULAR AND UNLABORED ON ROOM AIR. LEFT FOREARM G22 IV LINE INTACT AND PATENT, INFUSING WELL WITH NO BLEEDING OR S/S OF INFILTRATION NOTED. DENIES SUICIDAL IDEATION OR PAIN/DISCOMFORT AT THIS TIME. REFUSED DVT PUMP, RISK AND BENEFITS EXPLAINED. BED LOW AND LOCKED ON SEMI FOWLERS POSITION. CALL LIGHT IN REACH. WILL CONTINUE TO MONITOR.
--- NOTE | 2019-12-27 21:00 | NUR ---
MS RN NOTES NOTED WITH BODY TEMP. 99.4, COOLING MEASURES PROVIDED, ASSISTED ON BED BATH. RECHECK AFTER 1HR WITH 98.6
[2019-12-28] MEDS: IV NS 0.9% 1,000 ML IV PRN (03:55)
--- NOTE | 2019-12-28 06:30 | NUR ---
MS RN CLOSING NOTES PATIENT IN BED, ALERT AND ORIENTED X 4. AFEBRILE WITH NO S/S OF DISTRESS OBSERVED. LEFT FOREARM G22 IV LINE PATENT AND INFUSING WELL. NO COMPLAINTS OF PAIN/DISCOMFORT AT THIS TIME. BED LOW AND LOCKED ON SEMI FOWLERS POSITION. CALL LIGHT IN REACH. WILL ENDORSE TO MORNING SHIFT FOR SHANNA.
--- NOTE | 2019-12-28 07:31 | NUR ---
MS RN OPENING NOTES PATIENT IS A/0 X 4 AWAKE EATING BREAKFAST, WITH NO SIGNS OF DISTRESS IN ROOM AIR. IV L FA #22G INTACT NS AT 100 MLS/HR. NO COMPLAINT OF PAIN OR DISCOMFORT AT THIS TIME. SAFETY MEASURES ARE APPLIED BED IS LOCKED AND LOW POSITION, SIDE RAILS UP X 2 FOR SAFETY. CALL LIGHT WITHIN REACH WILL CONTINUE TO MONITOR.
[2019-12-28 07:45] LABS: BASOPHILS # (AUTO) 0.1 /CMM (0.0-0.2); BASOPHILS % (AUTO) 1.6 % (0.0-2.0); EOSINOPHILS % (AUTO) 3.9 % (0.0-6.0); HEMATOCRIT 29 % (39-51); HEMOGLOBIN 9.1 g/dL (13.5-17.5); LYMPHOCYTES # (AUTO) 0.9 /CMM (0.8-4.8); LYMPHOCYTES % (AUTO) 16.8 % (20.0-44.0); MEAN CORPUSCULAR HGB CONC 32 g/dl (31.0-36.0); MEAN CORPUSCULAR VOLUME 82 fL (80-96); MONOCYTES # (AUTO) 1.1 /CMM (0.1-1.30); MONOCYTES % (AUTO) 20.7 % (2.0-12.0); PLATELET COUNT (AUTO) 214 /CMM (150-450); RED BLOOD CELL COUNT(AUTO) 3.51 MIL/uL (4.5-6.0); WHITE BLOOD COUNT (AUTO) 5.3 K/uL (4.3-11.0)
[2019-12-28 08:01] LABS: CALCIUM, SERUM 8.6 mg/dL (8.5-10.1); MAGNESIUM 2.1 mg/dL (1.8-2.4); PHOSPHORUS 3.6 mg/dL (2.5-4.9)
[2019-12-28 09:32] LABS: EOSINOPHILS % (MANUAL) 5 % (0-4); LYMPHOCYTES % (MANUAL) 24 % (16-48); MONOCYTES % (MANUAL) 14 % (0-11.0); NEUTROPHILS % (MANUAL) 57 (42-76)
[2019-12-28] MEDS: LISINOPRIL (10MG) 10 MG TABLET PO SCH (09:33)
[2019-12-28] MEDS: ASCORBIC ACID 500 MG TABLET PO SCH (09:33)
[2019-12-28] MEDS: PANTOPRAZOLE 40 MG VIAL IV SCH (09:33)
[2019-12-28] MEDS: METOPROLOL SUCCINATE 50 MG TAB.SR.24H PO SCH (09:33)
[2019-12-28] MEDS: CHLORDIAZEPOXIDE HCL 25 MG CAPSULE PO SCH ×2 (09:37→12:16)
[2019-12-28 09:59] VITALS: BP 147/106
[2019-12-28] MEDS: POTASSIUM CHLORIDE 20 MEQ TAB.PRT.SR PO SCH ×3 (10:18→12:11)
--- NOTE | 2019-12-28 12:17 | NUR ---
HELD LIBRIUM MEDICATION ORDERED BY DR. SANCHEZ. WILL CONTINUE TO MONITOR.
--- NOTE | 2019-12-28 16:09 | NUR ---
Compensation Intern consult requested per Dr. Kincaid for alcohol abuse. Patient was alert and orientated x4. Patient was receptive to speaking with this SW. Patient was able to confirm demographics on face sheet. Patient explained to SW that the reason he was at [facility] was because of a seizure. Patient reports that a and friend brought him to [facility]. Patient reported that usually the pt can feel a seizure and takes precautions such as sitting down to help control these seizures. 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 Patient reports no history of drug or cigarette use. Patient does report drinking approximately a 6 pack of beer every single day. Patient reports that he began drinking at the age of 6, reports that his uncle would be the one to provide him with the beer. Patient also reports that he has gone to rehab 4-5 times and it doesnt work. When this SW asked what he believes would work for him, patient stated just to slow down I guess. SW asked if he would be willing to go back to the rehab centers, patient stated No, I have to take care of my mom now, she is 82. Patient was resistant to any resources for alcohol or mental health treatment and stated it does not work. There are no further SW interventions needed at this time. SW will remain available to the patient. coke worker provided a list of drug and alcohol resources to the patient for future reference. Referrals provided were Substance Abuse resources provided included: [facility] Substance Abuse Self-Helpline ([facility]) ; [facility] [address] [facility]. [place] [id number] ; [facility] [address] [facility] [address] ; [facility] [address] [facility] [address] ; [facility] [address] [facility] [address] ; [facility] [address] [facility] [address] ; [facility] [address] [facility] [id number] ; [facility] Substance Abuse Helpline([facility] ; [facility] ; [facility] [place]; [facility]; [facility] [place]; [facility]; [facility] [place]; [facility] [place]; [facility] [place]; [facility]. Pamela Camara; Alcoholics Anonymous [facility]; [facility] ; Marijuana Anonymous [facility]; Narcotics Anonymous www.na.org.
--- NOTE | 2019-12-28 16:30 | NUR ---
PATIENT VITAL SIGNS ARE STABLE, NO COMPLAIN OF PAIN AND NO SIGNS OF DISTRESS AND NO SOB. PATIENT DISCHARGE INSTRUCTIONS WERE EXPLAINED VERBALLY, TO CONTINUE WITH PRESCRIBED MEDICATIONS, FOLLOW UP WITH PRIMARY CARE PHYSICIAN IN ONE WEEK TO READ BIOPSY RESULTS AND RETURN TO THE NEAREST ER IN CASE OF AN EMERGENCY. HE VERBALLY READ INSTRUCTIONS BACK. IV WAS REMOVED WITH NO SIGNS OF BLEEDING AND COVERED. BELONGING LIST WAS COMPLETED AND SIGNED. LEFT THE HOSPITAL AMBULATING IN A NORMAL GAIT BY ME. GOT PICKED UP BY IN A PRIVATE CAR.
== END 2019-12-28 16:30 | disposition home or self-care (01) | DRG 241 ==
LOC: ER 12:39 → ICU 15:29 → MED 12-25 15:28 → TELE 12-25 15:50 → MED 12-26 09:01
PROVIDERS: ADMIT Student in an Organized Health Care Education/Training Program; ATTEND Student in an Organized Health Care Education/Training Program
PROC: 30233N1 Transfusion of Nonautologous Red Blood Cells into Peripheral Vein, Percutaneous Approach (ICD-10-PCS; principal; 2019-12-27)
PROC: 0DB68ZX Excision of Stomach, Via Natural or Artificial Opening Endoscopic, Diagnostic (ICD-10-PCS; principal; 2019-12-27)
DX: K29.71 Gastritis, unspecified, with bleeding (principal); F10.239 Alcohol dependence with withdrawal, unspecified; Y90.3 Blood alcohol level of 60-79 mg/100 ml; D64.9 Anemia, unspecified; E87.2 Acidosis; I10 Essential (primary) hypertension; D69.6 Thrombocytopenia, unspecified; K74.60 Unspecified cirrhosis of liver; E78.5 Hyperlipidemia, unspecified; E83.39 Other disorders of phosphorus metabolism; E87.6 Hypokalemia; R56.9 Unspecified convulsions; R74.0 Nonspecific elevation of levels of transaminase and lactic acid dehydrogenase [LDH]; E22.2 Syndrome of inappropriate secretion of antidiuretic hormone; E86.1 Hypovolemia; Y90.2 Blood alcohol level of 40-59 mg/100 ml
CPT/HCPCS: 36415; 70450-TC; 80048-TC; 80061-TC; 80076-TC; 80305; 83605-TC; 83735-TC; 84100-TC; 84439-TC; 84443-TC; 84550-TC; 85025-TC; 85027-TC; 85730-TC; 86850-TC; 86921-TC; 87081-TC; A4216; C9113; C9803-CS; G0378; G0480; J0360; J2060; J2250; J2354; J2704; J3480; J3490; J7030; J7050; P9016-BL

== ENCOUNTER 2020-02-19 18:40 | Emergency (ER) | payer OTHER ==
[~2020-02-19] VITALS: Ht 182.9 cm; Wt 90.7 kg
[~2020-02-19 18:40] MED LIST changes: +ASCO-352 PO; +ATOR40TA PO; +FERR325T6 PO; -GABA-532 PO; -HYDR50TA61 PO; +LISI10TA5 PO; +METO-357 PO; -METO25TA20 PO; +MULT1TAB69 PO; -PANT40TA4 PO; +PANT40TA49 PO; -PENT400T17 PO; -[UNRECOGNIZED DRUG - CODE] PO
[2020-02-19] MEDS ORDERED: SUCRALFATE 1 G TABLET ONE (20:56)
[2020-02-19 21:15] LABS: BASOPHILS # (AUTO) 0.1 /CMM (0.0-0.2); BASOPHILS % (AUTO) 0.8 % (0.0-2.0); EOSINOPHILS % (AUTO) 1.6 % (0.0-6.0); HEMATOCRIT 30 % (39-51); HEMOGLOBIN 9.2 g/dL (13.5-17.5); LYMPHOCYTES # (AUTO) 1.2 /CMM (0.8-4.8); LYMPHOCYTES % (AUTO) 19.6 % (20.0-44.0); MEAN CORPUSCULAR HGB CONC 31 g/dl (31.0-36.0); MEAN CORPUSCULAR VOLUME 71 fL (80-96); MONOCYTES # (AUTO) 0.9 /CMM (0.1-1.30); MONOCYTES % (AUTO) 15.6 % (2.0-12.0); NEUTROPHILS # (AUTO) 3.8 /CMM (1.8-8.9); NEUTROPHILS % (AUTO) 62.4 % (43.0-81.0); PLATELET COUNT (AUTO) 163 /CMM (150-450); RED BLOOD CELL COUNT(AUTO) 4.26 MIL/uL (4.5-6.0)
[2020-02-19] MEDS: SUCRALFATE 1 G TABLET PO ONE (21:16)
[2020-02-19] MEDS: IV NS 0.9% 500 ML BAG IV ONE (21:16)
--- NOTE | 2020-02-19 21:17 | NUR ---
BIBSELF C/O SOB X 5 DAYS. PT AAOX4, VSS. RR EVEN & UNLABORED. DENIES CP, DIZZINESS, N/V, ABD PAIN AT THIS TIME. PT SEEN & EVAL'D BY DR. ENGLE. WILL CONT TO MONITOR.
[2020-02-19 21:35] LABS: ALCOHOL, BLOOD 5 mg/dL (0-0); LIPASE 193 U/L (73-393)
[2020-02-19 21:36] LABS: CALCIUM, SERUM 9.3 mg/dL (8.5-10.1); CARBON DIOXIDE 29 mmol/L (21-32); CHLORIDE 95 mmol/L (98-107); CREATININE 0.8 mg/dL (0.6-1.3); GLUCOSE 118 mg/dL (74-106); POTASSIUM 3.8 mmol/L (3.5-5.1); SODIUM SERUM 133 mmol/L (136-145); UREA NITROGEN, BLOOD 3 mg/dL (7-18)
[2020-02-19 21:44] LABS: ALANINE AMINOTRANSFERASE 40 U/L (12-78); ALBUMIN 3.9 g/dL (3.4-5.0); ALKALINE PHOSPHATASE 119 U/L (46-116); ASPARTATE AMINOTRANSFERASE 78 U/L (15-37); B-TYPE NATRIURETIC PEPTIDE 476 PG/ML (0-125); BILIRUBIN,DIRECT 0.3 mg/dL (0.0-0.2); TOTAL PROTEIN, SERUM 8.4 g/dL (6.4-8.2)
[2020-02-19 22:12] VITALS: BP 140/90
--- NOTE | 2020-02-19 22:12 | NUR ---
Patient discharged to home in stable condition. Written and verbal after care instructions given. Patient verbalizes understanding of instruction. IV removed. Catheter intact and site benign. Pressure and 4x4 applied to site. No bleeding noted.
[2020-02-19 22:52] LABS: EOSINOPHILS % (MANUAL) 2 % (0-4); LYMPHOCYTES % (MANUAL) 20 % (16-48); MONOCYTES % (MANUAL) 20 % (0-11.0); NEUTROPHILS % (MANUAL) 58 (42-76)
== END 2020-02-19 22:13 | disposition home or self-care (01) ==
LOC: ER 18:43
DX: R06.02 Shortness of breath (principal); R10.11 Right upper quadrant pain; I10 Essential (primary) hypertension; D64.9 Anemia, unspecified; F10.20 Alcohol dependence, uncomplicated; D69.6 Thrombocytopenia, unspecified; Y90.0 Blood alcohol level of less than 20 mg/100 ml; Z79.899 Other long term (current) drug therapy
CPT/HCPCS: 36415; 71045; 80048; 80076; 80320; 83690; 83880; 84484; 85007; 85025; 86850; 93005; 99285; J7040; G0480

== ENCOUNTER 2021-03-22 00:51 | Emergency (ER) | payer OTHER ==
[~2021-03-22] VITALS: Ht 185.4 cm; Wt 86.2 kg
[~2021-03-22 00:51] MED LIST changes: +LISI10TA29 PO; -LISI10TA5 PO; -MULT1TAB69 PO; +MULT1TAB70 PO
[2021-03-22 01:09] VITALS: BP 159/93
--- NOTE | 2021-03-22 02:00 | NUR ---
Patient discharged to home in stable condition. Written and verbal after care instructions given. Patient verbalizes understanding of instruction.
== END 2021-03-22 02:00 | disposition home or self-care (01) ==
LOC: ER 00:56
DX: Q38.3 Other congenital malformations of tongue (principal); I10 Essential (primary) hypertension; Z79.899 Other long term (current) drug therapy

== ENCOUNTER 2021-08-02 21:47 | Inpatient (IN) | payer OTHER ==
[~2021-08-02] VITALS: Ht 172.7 cm; Wt 83.5 kg
--- NOTE | 2021-08-02 22:08 | NUR ---
YOLIS FROM HOME C/O WITNESSED SEIZURE ON THE COUCH. +ETOH "DRANK 18 BEERS" -HT HX OF SEIZURES. PATIENT ALERT AND ORIENTED X3. AMBULATORY WITH NON LABORED BREATHING IN BED 13 AWAITNG MD ROMERO.
--- NOTE | 2021-08-02 22:31 | NUR ---
BLOOD WORK COLLECTED SENT TO LAB
[2021-08-02] MEDS ORDERED: LORAZEPAM INJ 2 MG/ML VIAL ONE (22:35)
--- NOTE | 2021-08-02 22:42 | NUR ---
URINE COLLECTED SENT TO LAB
[2021-08-02 22:47] LABS: BASOPHILS % (AUTO) 0.1 % (0.0-2.0); EOSINOPHILS % (AUTO) 0.1 % (0.0-6.0); HEMATOCRIT 31 % (39-51); HEMOGLOBIN 9.7 g/dL (13.5-17.5); LYMPHOCYTES # (AUTO) 0.3 K/uL (0.8-4.8); LYMPHOCYTES % (AUTO) 2.7 % (20.0-44.0); MEAN CORPUSCULAR HGB CONC 31 g/dl (31.0-36.0); MEAN CORPUSCULAR VOLUME 76 fL (80-96); MONOCYTES # (AUTO) 1.2 K/uL (0.1-1.30); MONOCYTES % (AUTO) 11.4 % (2.0-12.0); NEUTROPHILS # (AUTO) 9.2 K/uL (1.8-8.9); NEUTROPHILS % (AUTO) 85.7 % (43.0-81.0); RED BLOOD CELL COUNT(AUTO) 4.06 MIL/uL (4.5-6.0); WHITE BLOOD COUNT (AUTO) 10.8 K/uL (4.3-11.0)
--- NOTE | 2021-08-02 22:51 | NUR ---
PATIENT TAKEN TO CT
--- NOTE | 2021-08-02 22:55 | NUR ---
COVID SWAB DONE AND SENT TO LAB
[2021-08-02] MEDS ORDERED: IV NS 0.9% 1,000 ML BAG IV ONE (23:00)
[2021-08-02] MEDS ORDERED: LORAZEPAM INJ 2 MG/ML VIAL IV ONE (23:00)
[2021-08-02 23:05] LABS: PLATELET COUNT (AUTO) 56 K/uL (150-450)
--- NOTE | 2021-08-02 23:06 | NUR ---
BACK FROM CT
[2021-08-03 00:09] LABS: CALCIUM, SERUM 8.1 mg/dL (8.5-10.1); CREATININE 0.9 mg/dL (0.6-1.3); POTASSIUM 3.7 mmol/L (3.5-5.1)
[2021-08-03 00:20] LABS: ALBUMIN 3.6 g/dL (3.4-5.0); BILIRUBIN,DIRECT 0.8 mg/dL (0.0-0.2); BILIRUBIN,TOTAL 1.7 mg/dL (0.2-1.0); TOTAL PROTEIN, SERUM 7.9 g/dL (6.4-8.2)
[2021-08-03] MEDS ORDERED: IV Sodium Chloride 3% 500 ML 500 ML IV ONE ×2 (00:24→00:30)
--- NOTE | 2021-08-03 00:34 | NUR ---
EPIC PANEL PAGED
[2021-08-03] MEDS ORDERED: CEFEPIME 1 GM in IV D5W 50 ML IV ONE (01:00)
[2021-08-03] MEDS ORDERED: CEFEPIME 1 GM VIAL ONE (01:22)
[2021-08-03] MEDS ORDERED: MAGNESIUM HYDROXIDE 30 ML UDC PO PRN (02:30)
[2021-08-03] MEDS ORDERED: LORAZEPAM INJ 2 MG/ML VIAL IV PRN (02:30)
[2021-08-03] MEDS ORDERED: ONDANSETRON HCL/PF 4 MG/2 ML VIAL IVP PRN (02:30)
[2021-08-03] MEDS ORDERED: MAG HYDROX/AL HYDROX/SIMETH 30 ML UDC PO PRN (02:30)
[2021-08-03] MEDS ORDERED: ACETAMINOPHEN 325 MG TABLET PO PRN (02:30)
[2021-08-03 03:06] LABS: LYMPHOCYTES % (MANUAL) 2 % (16-48); MONOCYTES % (MANUAL) 15 % (0-11.0); NEUTROPHILS % (MANUAL) 83 (42-76)
[2021-08-03 04:17] LABS: CREATININE 0.7 mg/dL (0.6-1.3); POTASSIUM 3.4 mmol/L (3.5-5.1)
--- NOTE | 2021-08-03 04:46 | NUR ---
report given to kiera olson for tamiko
--- NOTE | 2021-08-03 05:19 | NUR ---
PATIENT TRANSFERRED UNDER ACLS.
[2021-08-03 05:20] VITALS: BP 151/109
[2021-08-03 05:30] VITALS: BP 149/90
[2021-08-03 06:00] VITALS: BP 141/84
[2021-08-03] MEDS ORDERED: POTASSIUM CHLORIDE 20 MEQ TAB.PRT.SR PO ONE (06:00)
[2021-08-03] MEDS ORDERED: LEVETIRACETAM (500MG) 1,000 MG in IV NS 0.9% 100 ML IV SCH (06:00)
[2021-08-03] MEDS ORDERED: IV NS 0.9% 1,000 ML IV PRN (06:00)
[2021-08-03] MEDS ORDERED: LEVOFLOXACIN 500 MG /D5W 100ML 500 MG in PREMIX 1 EA IV SCH (07:00)
--- NOTE | 2021-08-03 07:00 | NUR ---
RN OPENING NOTES PT AWAKE A/O X4 AND ABLE TO WALK INDEPENDENTLY. PT HAS L AND R AC #18. NO FLUIDS RUNNING. PT STATES NO PAIN. WILL CONTINUE TO MONITOR.
[2021-08-03 08:00] VITALS: BP 148/97
[2021-08-03] MEDS: LEVOFLOXACIN 500 MG /D5W 100ML 500 MG in PREMIX 1 EA IV SCH (08:22)
[2021-08-03] MEDS: METOPROLOL SUCCINATE 50 MG TAB.SR.24H PO SCH (08:23)
[2021-08-03] MEDS: FOLIC ACID 1 MG TABLET PO SCH (08:23)
[2021-08-03] MEDS: PANTOPRAZOLE 40 MG TABLET.DR PO SCH (08:23)
[2021-08-03] MEDS: LISINOPRIL (10MG) 10 MG TABLET PO SCH (08:23)
[2021-08-03] MEDS: THIAMINE HCL 100 MG TABLET PO SCH (08:23)
[2021-08-03] MEDS: ASCORBIC ACID 500 MG TABLET PO SCH (08:23)
[2021-08-03] MEDS: FERROUS SULFATE (325 MG) 325 MG/TAB TABLET PO SCH (08:23)
--- NOTE | 2021-08-03 10:00 | NUR ---
RN NOTE DR. VIEIRA AWARE OF PT [address] VIEIRA NO NEW ORDERS. WILL TREND NA
--- NOTE | 2021-08-03 10:30 | NUR ---
family at bedside
[2021-08-03 11:27] LABS: CALCIUM, SERUM 8.2 mg/dL (8.5-10.1); CREATININE 0.8 mg/dL (0.6-1.3); POTASSIUM 3.2 mmol/L (3.5-5.1)
[2021-08-03 16:00] VITALS: BP 160/89
[2021-08-03 16:26] LABS: CREATININE 0.6 mg/dL (0.6-1.3); POTASSIUM 3.5 mmol/L (3.5-5.1)
[2021-08-03 16:27] LABS: CALCIUM, SERUM 7.9 mg/dL (8.5-10.1)
[2021-08-03] MEDS: ATORVASTATIN 40 MG TABLET PO SCH (18:04)
--- NOTE | 2021-08-03 18:40 | NUR ---
RN CLOSING NOTES PT IS A/O X4. SAT >95% ON RA. SR AND MED SURG STATUS. PT EATING 100% MEALS, BRP, AND URINAL. PT STATES NO PAIN. RUNNING 100CC NS. PT MORINIG NA 119, NEW BMP NA 122. WILL CONTINUE TO MONITOR
[2021-08-03 20:00] VITALS: BP 147/93
--- NOTE | 2021-08-03 20:00 | NUR ---
MS GAVI OPENING NOTE PATIENT AWAKE IN ROOM WATCHING TV, ALERT/ORIENTED X 4, PT ABLE TO MAKE NEEDS KNOWN. PT STABLE ON RA, NO S/S OF DISTRESS OR SOB NOTED, BREATHING EVEN AND UNLABORED. IV ACCESS ON LEFT AC #18G INTACT AND INFUSING NS @ 100 ML/HR. PT IS AMBULATORY TO BATHROOM. SAFETY MEASURES IN PLACE: CALL LIGHT WITHIN REACH, SIDE RAILS UP X 2, BED LOCKED IN LOWEST POSITION. WILL CONTINUE TO MONITOR PATIENT Addendum: 08/03/21 at 2202 by BROWN RICH RN RIGHT AC #18G
[2021-08-03] MEDS: LEVETIRACETAM (500MG) 1,000 MG in IV NS 0.9% 100 ML IV SCH (20:53)
--- NOTE | 2021-08-03 22:03 | NUR ---
MS RN NOTE PATIENT CONTINUES TO BE RESTLESS, GETTING OUT OF BED, PATIENT HAS UNSTEADY GAIT WITH TREMORS. EXPLAINED TO PATIENT THAT HE NEEDS TO STAY IN BED FOR HIS SAFETY AND PT VERBALIZED UNDERSTANDING BUT CONTINUES TO GET OUT OF BED. ATIVAN GIVEN AT 2110 BUT NOT EFFECTIVE. PATIENT APPEARS CONFUSED AND KEEPS GETTING UP TO WASH HIS HANDS
[2021-08-03 23:30] LABS: CREATININE 0.8 mg/dL (0.6-1.3)
--- NOTE | 2021-08-04 00:55 | NUR ---
MS RN NOTE PATIENT CONTINUES TO BE RESTLESS, PACING, ATTEMPTING TO GET OUT OF ROOM, BECOMING AGITATED. PLACED ON RESTRAINTS BUT PATIENT GOT OUT OF RESTRAINTS AND PULLED OUT IV ON LEFT FOREARM #20G. BECAME MORE AGITATED WITH RESTRAINTS ON SO THEY WERE REMOVED. NOTIFIED BURLAP MAN MD WITH ORDER FOR ONE TIME DOSE OF HALDOL 2.5 MG IM.
[2021-08-04] MEDS ORDERED: HALOPERIDOL LACTATE INJ 5 MG/ML VIAL IM ONE (01:00)
[2021-08-04 01:41] LABS: CALCIUM, SERUM 8.6 mg/dL (8.5-10.1)
--- NOTE | 2021-08-04 02:36 | NUR ---
MS RN NOTE CRITICAL LAB - SODIUM 117. NOTIFIED ACCOUNT SERVICES REPRESENTATIVE MD ETIENNE GARCIA WITH ORDERS TO INCREASE NS TO 150 ML/HR. ORDER CARRIED OUT
[2021-08-04 03:53] LABS: BASOPHILS % (AUTO) 0.2 % (0.0-2.0); HEMATOCRIT 29 % (39-51); HEMOGLOBIN 9.2 g/dL (13.5-17.5); LYMPHOCYTES # (AUTO) 0.6 K/uL (0.8-4.8); LYMPHOCYTES % (AUTO) 7.1 % (20.0-44.0); MEAN CORPUSCULAR HGB CONC 32 g/dl (31.0-36.0); MEAN CORPUSCULAR VOLUME 75 fL (80-96); MONOCYTES # (AUTO) 1.4 K/uL (0.1-1.30); MONOCYTES % (AUTO) 17.8 % (2.0-12.0); NEUTROPHILS % (AUTO) 74.9 % (43.0-81.0); PLATELET COUNT (AUTO) 79 K/uL (150-450); RED BLOOD CELL COUNT(AUTO) 3.82 MIL/uL (4.5-6.0); WHITE BLOOD COUNT (AUTO) 8.1 K/uL (4.3-11.0)
[2021-08-04 04:00] VITALS: BP 132/85
[2021-08-04] MEDS: IV NS 0.9% 1,000 ML IV PRN ×3 (04:04→22:32)
[2021-08-04 06:17] LABS: CREATININE 0.7 mg/dL (0.6-1.3); MAGNESIUM 1.9 mg/dL (1.8-2.4); PHOSPHORUS 1.4 mg/dL (2.5-4.9); POTASSIUM 3.2 mmol/L (3.5-5.1)
--- NOTE | 2021-08-04 07:22 | NUR ---
MS RN NOTE PATIENT LAYING IN BED, ALERT/ORIENTED X 2 BUT CONFUSED, DIFFICULT TO REORIENT PATIENT, DOESN'T FOLLOW DIRECTIONS. PT STABLE ON RA, NO S/S OF DISTRESS OR SOB NOTED, BREATHING EVEN AND UNLABORED. IV ACCESS ON LEFT FOREARM INFUSING NS @ 150 ML/HR. PATIENT REMAINED CALM AND SLEPT AFTER RECEIVING HALDOL IM. PATIENT HAS UNSTEADY GAIT SO NEEDS SBA TO BATHROOM, REFUSES TO USE URINAL. SAFETY MEASURES IN PLACE: CALL LIGHT WITHIN REACH, SIDE RAILS UP X 2, BED LOCKED IN LOWEST POSITION, HOB ELEVATED, BED ALARM ON. DAY SHIFT SITTER AT BEDSIDE. ENDORSED TO DAY SHIFT NURSE FOR CONTINUITY OF CARE
--- NOTE | 2021-08-04 07:30 | NUR ---
MS RN OPENING NOTES RECEIVED PATIENT RESTING ON BED AND A/O X2-3. ON ROOM AIR TOLERATING WELL. NO SOB NOTED. NOT IN DISTRESS. WITH NO COMPLAINTS OF PAIN OR DISCOMFORT AT THIS TIME. WITH IV ACCESS AT LEFT FOREARM G20 WITH IVF NS AT 150ML/HR INFUSING WELL. WITH 1 SITTER AT BEDSIDE. SAFETY MEASURES IN PLACED. CALL LIGHT WITHIN REACH. BED ON LOWEST LOCKED POSITION, SIDE RAILS UP X2. WILL CONTINUE TO MONITOR.
[2021-08-04 08:00] VITALS: BP 111/73
[2021-08-04] MEDS: FERROUS SULFATE (325 MG) 325 MG/TAB TABLET PO SCH ×2 (09:21→16:49)
[2021-08-04] MEDS: LEVOFLOXACIN 500 MG /D5W 100ML 500 MG in PREMIX 1 EA IV SCH (09:21)
[2021-08-04] MEDS: ASCORBIC ACID 500 MG TABLET PO SCH (09:21)
[2021-08-04] MEDS: THIAMINE HCL 100 MG TABLET PO SCH (09:21)
[2021-08-04] MEDS: POTASSIUM CHLORIDE 20 MEQ TAB.PRT.SR PO SCH ×2 (09:22→11:02)
[2021-08-04] MEDS: METOPROLOL SUCCINATE 50 MG TAB.SR.24H PO SCH (09:22)
[2021-08-04] MEDS: PANTOPRAZOLE 40 MG TABLET.DR PO SCH (09:23)
[2021-08-04] MEDS: LISINOPRIL (10MG) 10 MG TABLET PO SCH (09:23)
[2021-08-04] MEDS: FOLIC ACID 1 MG TABLET PO SCH (09:25)
[2021-08-04 11:00] LABS: BAND % (MANUAL) 6 % (0.0-5.0); LYMPHOCYTES % (MANUAL) 14 % (16-48); MONOCYTES % (MANUAL) 14 % (0-11.0); NEUTROPHILS % (MANUAL) 66 (42-76)
[2021-08-04] MEDS: LEVETIRACETAM (500MG) 1,000 MG in IV NS 0.9% 100 ML IV SCH ×2 (11:02→20:14)
[2021-08-04 12:00] LABS: CALCIUM, SERUM 9.1 mg/dL (8.5-10.1); CREATININE 0.7 mg/dL (0.6-1.3); POTASSIUM 3.4 mmol/L (3.5-5.1)
[2021-08-04 15:26] LABS: CALCIUM, SERUM 7.8 mg/dL (8.5-10.1); CREATININE 0.7 mg/dL (0.6-1.3); POTASSIUM 3.3 mmol/L (3.5-5.1)
[2021-08-04] MEDS ORDERED: K PHOS NEUTRAL 250 MG TABLET PO ONE (15:30)
[2021-08-04 16:00] VITALS: BP 149/104
[2021-08-04] MEDS: ATORVASTATIN 40 MG TABLET PO SCH (17:14)
[2021-08-04 17:37] LABS: CALCIUM, SERUM 6.5 mg/dL (8.5-10.1); CREATININE 0.9 mg/dL (0.6-1.3); POTASSIUM 3.4 mmol/L (3.5-5.1)
--- NOTE | 2021-08-04 17:59 | NUR ---
Patient psych consult: @ 1330 called [facility] for speaking to psych regarding the patient psych consult, and [employer] department secretary asked for Facesheet to be fax. Faxed Facesheet (fax sent paper is in the chart), and after that contacted Dr. Colten Flores and informed him about psych consult That Mr. Cm requested. Dr. Flores said will visited the patient tomorrow.
--- NOTE | 2021-08-04 18:24 | NUR ---
Closing Notes Patient is resting comfortably and is in no acute distress. Call light and tray table with personal belonging is corky reach. Patient was maintained throughout shift and vitals remained in patient's baseline. Interventions were completed as needed. All of the patient's needs have been met. Assistance was provided as needed. All dur medications administered as needed per MD orderes. Will endorse to operations supervisor 2nd shift nurse.
--- NOTE | 2021-08-04 19:30 | NUR ---
MS RN OPENING NOTE RECEIVED PATIENT RESTING IN BED AND A/O X2-3. ON ROOM AIR TOLERATING WELL. NO SOB OR S/S OF RESPIRATORY DISTRESS. NO COMPLAINTS OF PAIN OR DISCOMFORT AT THIS TIME. IV ACCESS LFA 20 GAUGE RUNNING NS @ 150ML/HR INFUSING WELL. SAFETY PRECAUTIONS IN PLACE. BED IN LOWEST LOCKED POSITION, HOB ELEVATED, SIDE RAILS UP X2, AND CALL LIGHT AND TABLE WITHIN REACH. WILL CONTINUE WITH PLAN OF CARE.
[2021-08-04 20:00] VITALS: BP 139/94
[2021-08-04 23:08] LABS: CREATININE 0.7 mg/dL (0.6-1.3); POTASSIUM 3.1 mmol/L (3.5-5.1)
[2021-08-05 04:00] VITALS: BP 143/93
[2021-08-05] MEDS: IV NS 0.9% 1,000 ML IV PRN (04:59)
--- NOTE | 2021-08-05 06:36 | NUR ---
MS RN CLOSING NOTE PATIENT AWAKE IN BED AND A/O X3. ON ROOM AIR TOLERATING WELL. NO SOB OR S/S OF RESPIRATORY DISTRESS. NO COMPLAINTS OF PAIN OR DISCOMFORT AT THIS TIME. IV ACCESS LFA 20 GAUGE RUNNING NS @ 150ML/HR INFUSING WELL. ALL NEEDS MET AT THIS TIME. SAFETY PRECAUTIONS IN PLACE AT ALL TIMES. BED IN LOWEST LOCKED POSITION, HOB ELEVATED, SIDE RAILS UP X2, AND CALL LIGHT AND TABLE WITHIN REACH. WILL ENDORSE TO ONCOMING SHIFT FOR SHANNA.
--- NOTE | 2021-08-05 07:15 | NUR ---
RN OPENING NOTE RECEIVED PATIENT AWAKE IN BED, ALERT/ORIENTED X 4, PATIENT ABLE TO MAKE NEEDS KNOWN. PATIENT STABLE ON RA, BREATHING EVEN AND UNLABORED. NO S/S OF DISTRESS OR SOB NOTED. IV ACCESS ON LEFT F/A #20G INTACT AND INFUSING NS @ 150 ML/HR. NO SIGNS OF INFILTRATION NOTED. SAFETY MEASURES IN PLACE: CALL LIGHT WITHIN REACH, SIDE RAILS UP X 2, BED LOCKED IN LOWEST POSITION. WILL CONTINUE TO MONITOR PATIENT ACCORDINGLY.
[2021-08-05] MEDS: FOLIC ACID 1 MG TABLET PO SCH (08:21)
[2021-08-05] MEDS: FERROUS SULFATE (325 MG) 325 MG/TAB TABLET PO SCH (08:21)
[2021-08-05] MEDS: ASCORBIC ACID 500 MG TABLET PO SCH (08:21)
[2021-08-05] MEDS: PANTOPRAZOLE 40 MG TABLET.DR PO SCH (08:22)
[2021-08-05] MEDS: METOPROLOL SUCCINATE 50 MG TAB.SR.24H PO SCH (08:22)
[2021-08-05] MEDS: THIAMINE HCL 100 MG TABLET PO SCH (08:22)
[2021-08-05] MEDS: LISINOPRIL (10MG) 10 MG TABLET PO SCH (08:22)
[2021-08-05] MEDS: LEVETIRACETAM (500MG) 1,000 MG in IV NS 0.9% 100 ML IV SCH (08:23)
[2021-08-05] MEDS ORDERED: LEVOFLOXACIN (250MG) 250 MG TABLET PO SCH (09:00)
[2021-08-05 10:18] LABS: CALCIUM, SERUM 8.9 mg/dL (8.5-10.1)
[2021-08-05] MEDS ORDERED: LEVO500T90 PO (10:50)
[2021-08-05] MEDS ORDERED: LEVE1000 PO (10:50)
[2021-08-05] MEDS ORDERED: THIA100T88 PO (10:50)
[2021-08-05 11:11] LABS: CALCIUM, SERUM 8.4 mg/dL (8.5-10.1); CREATININE 0.7 mg/dL (0.6-1.3); PHOSPHORUS 2.2 mg/dL (2.5-4.9)
[2021-08-05 11:14] LABS: POTASSIUM 2.8 mmol/L (3.5-5.1)
--- NOTE | 2021-08-05 11:18 | NUR ---
k lever is 2.8 Dr Cm notified and orders carried out. k due 40 meq po now and repeat k dur 40 meq upon discharge total of 80 meq of k dur call light with in reach
[2021-08-05 12:00] VITALS: BP 144/88
[2021-08-05] MEDS ORDERED: POTASSIUM CHLORIDE 20 MEQ TAB.PRT.SR PO ONE ×2 (12:00→15:00)
[2021-08-05] MEDS ORDERED: NEUTRA PHOS 1 POWD.PACKET PO ONE (13:00)
--- NOTE | 2021-08-05 15:09 | NUR ---
RN NOTES PATIENT WAS DISCHARGED TO HOME IN STABLE CONDITION. VITAL SIGNS= BP-149/79, TEMP-98.3, HR-115, RR-19, O2-98%. PATIENT DENIES ANY PAIN/DISCOMFORT. BREATHING EVEN AND UNLABORED. NO SOB OR ANY ACUTE DISTRESS NOTED AT THE TIME. ALL BELONGINGS ACCOUNTED FOR AND GIVEN TO PATIENT. DISCHARGE INSTRUCTIONS SIGNED AND FORMS GIVEN TO PATIENT. PATIENT WHEELED OUT OF HOSPITAL AND LEFT WITH .
[2021-08-05] MEDS ORDERED: LEVETIRACETAM (250 MG) 250 MG TABLET PO SCH (21:00)
== END 2021-08-05 16:18 | disposition home or self-care (01) | DRG 426 ==
LOC: ER 21:52 → ICU 08-03 05:00 → MEDSG1 08-03 06:28
PROVIDERS: ADMIT Nurse Practitioner Acute Care; ATTEND Nurse Practitioner Acute Care
DX: E87.1 Hypo-osmolality and hyponatremia (principal); J69.0 Pneumonitis due to inhalation of food and vomit; G93.41 Metabolic encephalopathy; F10.10 Alcohol abuse, uncomplicated; D50.9 Iron deficiency anemia, unspecified; D69.59 Other secondary thrombocytopenia; G40.909 Epilepsy, unspecified, not intractable, without status epilepticus; E78.5 Hyperlipidemia, unspecified; K21.9 Gastro-esophageal reflux disease without esophagitis; R74.01 Elevation of levels of liver transaminase levels; K27.9 Peptic ulcer, site unspecified, unspecified as acute or chronic, without hemorrhage or perforation; E87.6 Hypokalemia; Y90.2 Blood alcohol level of 40-59 mg/100 ml; Z20.822 Contact with and (suspected) exposure to COVID-19
CPT/HCPCS: 36415; 70450-TC; 71045-TC; 80048-TC; 80061-TC; 80076-TC; 83735-TC; 84100-TC; 85025-TC; 85730-TC; 87081-TC; A4216; A4349; A6253; C9803; G0378; G0480; J0692; J1630; J1953; J1956; J2060; J3490; J7030; J7060

== ENCOUNTER 2021-11-05 03:49 | Emergency (ER) | payer OTHER ==
[~2021-11-05] VITALS: Ht 177.8 cm; Wt 86.2 kg
[~2021-11-05 03:49] MED LIST changes: +LEVE1000 PO; +LEVO500T90 PO; +THIA100T88 PO
--- NOTE | 2021-11-05 04:13 | NUR ---
TO ER BED 14. [id number] FRM HOME C/O BACK PAIN X2HRS ADMITS TO ETOH. DENIES ANY TRAUMA. AAOX4. AMBULATORY WITH UNSTEADY GAIT. BREATHING IS EVEN AND UNLABORED. CONNECTED TO MONITOR. AWAITING MD ROMERO
[2021-11-05] MEDS ORDERED: ACETAMINOPHEN 325 MG TABLET PO ONE (04:30)
[2021-11-05 04:56] LABS: BASOPHILS # (AUTO) 0.1 K/uL (0.0-0.2); BASOPHILS % (AUTO) 1.8 % (0.0-2.0); EOSINOPHILS % (AUTO) 0.7 % (0.0-6.0); HEMATOCRIT 25 % (39-51); HEMOGLOBIN 7.9 g/dL (13.5-17.5); LYMPHOCYTES # (AUTO) 1.2 K/uL (0.8-4.8); LYMPHOCYTES % (AUTO) 30.6 % (20.0-44.0); MEAN CORPUSCULAR HGB CONC 32 g/dl (31.0-36.0); MEAN CORPUSCULAR VOLUME 73 fL (80-96); MONOCYTES # (AUTO) 0.4 K/uL (0.1-1.30); MONOCYTES % (AUTO) 9.5 % (2.0-12.0); NEUTROPHILS # (AUTO) 2.2 K/uL (1.8-8.9); NEUTROPHILS % (AUTO) 57.4 % (43.0-81.0); PLATELET COUNT (AUTO) 82 K/uL (150-450); RED BLOOD CELL COUNT(AUTO) 3.43 MIL/uL (4.5-6.0); WHITE BLOOD COUNT (AUTO) 3.9 K/uL (4.3-11.0)
[2021-11-05 04:59] LABS: BILIRUBIN,URINE NEGATIVE (NEGATIVE); COLOR,URINE YELLOW (YELLOW); LEUKOCYTE ESTERASE ,URINE NEGATIVE (NEGATIVE); NITRITE, URINE NEGATIVE (NEGATIVE); PROTEIN,URINE NEGATIVE (NEGATIVE); UGLUCOSE NEGATIVE (NEGATIVE); UROBILINOGEN,URINE 0.2 EU/dL (0.2)
[2021-11-05 05:06] LABS: CALCIUM, SERUM 8.2 mg/dL (8.5-10.1); CARBON DIOXIDE 28 mmol/L (21-32); CHLORIDE 95 mmol/L (98-107); CREATININE 0.7 mg/dL (0.6-1.3); GLUCOSE 141 mg/dL (74-106); POTASSIUM 3.5 mmol/L (3.5-5.1); SODIUM SERUM 134 mmol/L (136-145); UREA NITROGEN, BLOOD 3 mg/dL (7-18)
[2021-11-05 05:19] LABS: ALANINE AMINOTRANSFERASE 59 U/L (12-78); ALBUMIN 3.7 g/dL (3.4-5.0); ALKALINE PHOSPHATASE 203 U/L (46-116); ASPARTATE AMINOTRANSFERASE 101 U/L (15-37); BILIRUBIN,DIRECT 0.4 mg/dL (0.0-0.2); BILIRUBIN,TOTAL 0.7 mg/dL (0.2-1.0); TOTAL PROTEIN, SERUM 7.7 g/dL (6.4-8.2)
[2021-11-05 05:21] LABS: ACETAMINOPHEN 0 ug/ml (10-30)
[2021-11-05 05:22] LABS: ALCOHOL, BLOOD > 300 mg/dL (0-0)
[2021-11-05] MEDS ORDERED: ONDANSETRON 4 MG TAB.RAPDIS ONE (05:32)
[2021-11-05] MEDS ORDERED: ACETAMINOPHEN 325 MG TABLET ONE (05:32)
[2021-11-05] MEDS ORDERED: ONDANSETRON 4 MG TAB.RAPDIS SL ONE (06:00)
--- NOTE | 2021-11-05 07:23 | NUR ---
Patient discharged to home in stable condition. Written and verbal after care instructions given. Patient verbalizes understanding of instruction.
[2021-11-05 07:24] VITALS: BP 112/70
[2021-11-05 09:53] LABS: LYMPHOCYTES % (MANUAL) 30 % (16-48); MONOCYTES % (MANUAL) 10 % (0-11.0); NEUTROPHILS % (MANUAL) 60 (42-76)
== END 2021-11-05 07:24 | disposition home or self-care (01) ==
LOC: ER 03:55
DX: G89.29 Other chronic pain (principal); M54.6 Pain in thoracic spine; F10.129 Alcohol abuse with intoxication, unspecified; I10 Essential (primary) hypertension; Z86.69 Personal history of other diseases of the nervous system and sense organs; Z79.899 Other long term (current) drug therapy; Y90.8 Blood alcohol level of 240 mg/100 ml or more
CPT/HCPCS: 36415; 80048; 80076; 80143; 80307; 80320; 81003; 85007; 85025; 99283; Q0162; G0480

== ENCOUNTER 2021-11-07 09:55 | Emergency (ER) | payer OTHER ==
[~2021-11-07] VITALS: Ht 170.2 cm; Wt 82.8 kg
--- NOTE | 2021-11-07 10:11 | NUR ---
BIBPA FOR LEFT LOWER BACK PAIN 02/19. THE PATIENT HAS HX OF BACK PAIN X6 MO. ADMITS DRINKING ALCOHOL TODAY AM. THE PATIENT IS ALERT AND ORIENTED X3. IN ROOM AIR AND DENIES SOB. RESPIRATION REGULAR AND UNLABORED. WILL CONTINUE TO MONITOR THE PATIENT.
[2021-11-07] MEDS ORDERED: KETOROLAC TROMETHAMINE INJ 30 MG/ML VIAL ONE (10:21)
[2021-11-07] MEDS ORDERED: LORAZEPAM INJ 2 MG/ML VIAL ONE (10:22)
[2021-11-07] MEDS ORDERED: LORAZEPAM INJ 2 MG/ML VIAL IM ONE (10:30)
[2021-11-07] MEDS ORDERED: KETOROLAC TROMETHAMINE INJ 30 MG/ML VIAL IM ONE (10:30)
[2021-11-07] MEDS ORDERED: CYCL5TAB PO (11:23)
[2021-11-07] MEDS ORDERED: IBUP-1957 PO (11:23)
--- NOTE | 2021-11-07 11:28 | NUR ---
Patient discharged to home in stable condition. Written and verbal after care instructions given. Patient verbalizes understanding of instruction.
[2021-11-07 11:29] VITALS: BP 111/78
== END 2021-11-07 11:32 | disposition home or self-care (01) ==
LOC: ER 09:57
DX: G89.29 Other chronic pain (principal); M54.50 Low back pain, unspecified; I10 Essential (primary) hypertension; Z87.19 Personal history of other diseases of the digestive system; Z60.2 Problems related to living alone; Z79.899 Other long term (current) drug therapy
CPT/HCPCS: 71100; 96372 ×2; 99284; J1885; J2060

== ENCOUNTER 2022-08-12 09:19 | Inpatient (IN) | payer OTHER ==
[~2022-08-12] VITALS: Ht 182.9 cm; Wt 84.4 kg
[~2022-08-12 09:19] MED LIST changes: +CYCL5TAB PO; +IBUP-1957 PO
--- NOTE | 2022-08-12 09:20 | NUR ---
BIBA FROM HOME FOR SEIZURE THIS AM, LACERATION TO FOREHEAD. A/O X 3, ABLE TO MAKE NEEDS KNOWN, TOLERATING WELL ON ROOM AIR.
[2022-08-12] MEDS ORDERED: LIDOCAINE 1%-EPI 1:100,000 20 ML VIAL ONE (09:28)
[2022-08-12] MEDS ORDERED: IV NS 0.9% 1,000 ML BAG IV ONE (09:30)
[2022-08-12] MEDS ORDERED: LORAZEPAM INJ 2 MG/ML VIAL IVP ONE (09:30)
[2022-08-12] MEDS ORDERED: LORAZEPAM INJ 2 MG/ML VIAL ONE ×2 (09:34→12:39)
--- NOTE | 2022-08-12 09:43 | NUR ---
AT BEDSIDE FOR SUTURE PLACEMENT
--- NOTE | 2022-08-12 09:43 | NUR ---
BLOOD SAMPLES COLLECTED
--- NOTE | 2022-08-12 10:01 | NUR ---
covid swab and mrsa swab collected and sent to lab
--- NOTE | 2022-08-12 10:05 | NUR ---
PT TO RADIOLOGY OF FOR HEAD CT SCAN ACCOMPANIED BY WILLOW GATICA
[2022-08-12 10:28] LABS: BASOPHILS % (AUTO) 0.8 % (0.0-2.0); EOSINOPHILS % (AUTO) 1.5 % (0.0-6.0); HEMATOCRIT 36 % (39-51); HEMOGLOBIN 11.9 g/dL (13.5-17.5); LYMPHOCYTES # (AUTO) 0.6 K/uL (0.8-4.8); LYMPHOCYTES % (AUTO) 16.5 % (20.0-44.0); MEAN CORPUSCULAR HGB CONC 33 g/dl (31.0-36.0); MEAN CORPUSCULAR VOLUME 94 fL (80-96); MONOCYTES # (AUTO) 0.4 K/uL (0.1-1.30); NEUTROPHILS # (AUTO) 2.6 K/uL (1.8-8.9); NEUTROPHILS % (AUTO) 69.2 % (43.0-81.0); PLATELET COUNT (AUTO) 51 K/uL (150-450); RED BLOOD CELL COUNT(AUTO) 3.83 MIL/uL (4.5-6.0); WHITE BLOOD COUNT (AUTO) 3.7 K/uL (4.3-11.0)
[2022-08-12 10:39] LABS: CALCIUM, SERUM 9.6 mg/dL (8.5-10.1); CREATININE 0.8 mg/dL (0.6-1.3); POTASSIUM 3.8 mmol/L (3.5-5.1)
[2022-08-12 10:45] LABS: ALBUMIN 4.2 g/dL (3.4-5.0); BILIRUBIN,DIRECT 1.3 mg/dL (0.0-0.2); BILIRUBIN,TOTAL 2.3 mg/dL (0.2-1.0); TOTAL PROTEIN, SERUM 8.3 g/dL (6.4-8.2)
--- NOTE | 2022-08-12 11:03 | NUR ---
URINE SAMPLE COLLECTED
[2022-08-12 11:35] LABS: BASOPHILS % (MANUAL) 0 % (0.0-2.0); EOSINOPHILS % (MANUAL) 1 % (0-4); LYMPHOCYTES % (MANUAL) 18 % (16-48); MONOCYTES % (MANUAL) 11 % (0-11.0); NEUTROPHILS % (MANUAL) 70 (42-76)
[2022-08-12 11:57] LABS: BILIRUBIN,URINE NEGATIVE (NEGATIVE); COLOR,URINE YELLOW (YELLOW); LEUKOCYTE ESTERASE ,URINE NEGATIVE (NEGATIVE); NITRITE, URINE NEGATIVE (NEGATIVE); PROTEIN,URINE 1+ mg/dl (NEGATIVE); UGLUCOSE NEGATIVE (NEGATIVE)
[2022-08-12 12:03] LABS: BACTERIA,URINE Few /HPF (None Seen); SQUAMOUS EPITHELIAL CELL,UR Few /HPF (None Seen)
[2022-08-12] MEDS ORDERED: LORAZEPAM INJ 2 MG/ML VIAL IV ONE (12:30)
[2022-08-12 13:00] VITALS: BP 145/89
--- NOTE | 2022-08-12 13:13 | NUR ---
Report given to GAVI Monique
[2022-08-12] MEDS ORDERED: IBUP-1955 PO (13:16)
[2022-08-12] MEDS ORDERED: POLY17PO4 PO (13:16)
[2022-08-12] MEDS ORDERED: FOLI0.4T6 PO (13:16)
--- NOTE | 2022-08-12 13:25 | NUR ---
EMPLOYEE COMMUNICATIONS COORDINATORFINANCIAL ADMINISTRATOR NOTE (3 , DAYSHI) Patient arrived via gurney from ED accompanied by ED nurse Dewey and pt's . Patient is alert, but confused, oriented x 1 to person, cannot remember his seizure or fall to his bathroom floor at home earlier today. Patient has dark, swollen left eyelid with black ecchymosis and left forehead laceratioin sutured in the ED, still oozing sainguinous drainage. Applied dry, sterile dressing with tape on top of laceration. Patient's VS stable: O2 Sat= 97% on room air; temp.= 99.3 F oral; HR = 109; RR = 20; no signs nor c/0o pain at the moment. Tele monitor shows sinus tachycardia in 100s to 110s HR range. Placed on aspiration, fall, and seizure preacautions. Bed side rails up and padded for safety. Call light/yusuf oriented to pt and his and within pt's reach. Bed in lowest position with bed brakes locked. HOB elevated at all times. Suction equipment at bed side. Will continue to care for and to monitor for signs of ETOH withdrawal and seizures as per hospitalist MD's POC.
--- NOTE | 2022-08-12 13:32 | NUR ---
Patient transferred to [facility], all care endorsed to GAVI Monique
[2022-08-12] MEDS ORDERED: MAG HYDROX/AL HYDROX/SIMETH 30 ML UDC PO PRN (14:00)
[2022-08-12] MEDS ORDERED: ONDANSETRON HCL/PF 4 MG/2 ML VIAL IVP PRN (14:00)
[2022-08-12] MEDS ORDERED: MAGNESIUM HYDROXIDE 30 ML UDC PO PRN (14:00)
[2022-08-12] MEDS ORDERED: ZOLPIDEM TARTRATE 5 MG TABLET PO PRN (14:00)
[2022-08-12] MEDS ORDERED: ACETAMINOPHEN 325 MG TABLET PO PRN (14:00)
[2022-08-12 16:00] VITALS: BP 150/111
[2022-08-12] MEDS: IV D5/0.45 NACL 1,000 ML IV PRN (16:30)
[2022-08-12] MEDS: LORAZEPAM INJ 2 MG/ML VIAL IV PRN (18:26)
--- NOTE | 2022-08-12 19:10 | NUR ---
LONGWALL SHEARER OPERATOR CLOSING NOTE Patient dozing off to sleep after eating about 50% of dinner. Mostly on bedrest, with seizure, aspiration, and fall precautions in place. Bed side rails all up and padded and suction equipment at bedside. Bed in lowest position with bed brakes locked on. Call yusuf/light within reach of patient. Started to have hand tremors possible ETOH withdrawal and given ativan 2 mg IV push at 18:26 hours with good relief. Patient has patent, intact PIV # 20 gauge to left antecubital space, infusing well D5 1/2 NS @ 75mLs/hr. Will endorse to shift stacker RN for SHANNA.
--- NOTE | 2022-08-12 19:30 | NUR ---
GALLERY DIRECTOR OPENING NOTES - RECEIVED PATIENT SLEEPING, EASY TO AROUSE. ALERT BUT DISORIENTED. ANSWERED YES WHEN I ASKED IF HIS NAME IS ASHLY BUT GAVE WRONG ANSWERS ON OTHER QUESTIONS. BREATHING EVEN AND NON-LABORED ON ROOM AIR. NOT IN APPARENT DISTRESS. UNABLE TO ASSESS PAIN AT THIS TIME. ON TELE MONITOR READING SINUS TACHYCARDIA AT 101 BPM. HAS LEFT ANTECUBITAL IV ACCESS #20G WITH D5 1/2NS RUNNING AT 75 ML/HR. NO S/S OF INFILTRATION NOTED. LEFT EYE HEMATOMA WITH DRY DRESSING OVER THE EYEBROW NOTED. SIDE RAILS PADDED FOR SEIZURE PRECAUTION. SAFETY MEASURES IN PLACE: BED LOCKED AND IN LOW POSITION, SIDE RAILS UP X3, BED ALARM ON, CALL LIGHT WITHIN REACH. WILL CONTINUE PLAN OF CARE.
[2022-08-12 20:00] VITALS: BP 156/97
--- NOTE | 2022-08-12 21:30 | NUR ---
PATIENT GOT OUT OF BED PULLING HIS IV LINE AND TRYING TO USE THE TOILET. HE WAS AGITATED BUT CALMED DOWN AFTER A FEW MINUTES. INSTRUCTED TO USE THE URINAL WHEN URINATING. I RECHECKED HIS ORIENTATION AND HE IS ORIENTED TO PERSON, PLACE AND SITUATION. WILL CONTINUE TO MONITOR FOR SAFETY. Addendum: 08/12/22 at 2229 by October LAMBERTO GATICA I ASKED IF HE NEEDS SOMETHING FOR PAIN, REFUSED.
[2022-08-13] VITALS: BP 143/99
[2022-08-13] MEDS: LORAZEPAM INJ 2 MG/ML VIAL IV PRN ×2 (00:47→04:49)
--- NOTE | 2022-08-13 00:50 | NUR ---
PATIENT KEPT TRYING TO GET OUT OF BED AND CAN'T BE REDIRECTED AT THIS TIME. ADMINISTERED PRN ATIVAN 2MG ORDERED. WILL CONTINUE TO MONITOR FOR ALCOHOL WITHDRAWALS.
[2022-08-13 04:00] VITALS: BP 129/95
--- NOTE | 2022-08-13 05:27 | NUR ---
PATIENT IS MORE ALERT NOW AND HE IS ORIENTED X4, REMEMBER SOME OF THE EVENTS PRIOR TO HIS HOSPITALIZATION. GENERALIZED TREMORS NOTED, ADMINISTERED PRN ATIVAN 2MG.
[2022-08-13] MEDS: IV D5/0.45 NACL 1,000 ML IV PRN ×2 (05:30→16:26)
[2022-08-13 06:26] LABS: BASOPHILS % (AUTO) 1.1 % (0.0-2.0); EOSINOPHILS % (AUTO) 1.7 % (0.0-6.0); HEMATOCRIT 34 % (39-51); HEMOGLOBIN 11.2 g/dL (13.5-17.5); LYMPHOCYTES # (AUTO) 0.4 K/uL (0.8-4.8); LYMPHOCYTES % (AUTO) 11.8 % (20.0-44.0); MEAN CORPUSCULAR HGB CONC 33 g/dl (31.0-36.0); MEAN CORPUSCULAR VOLUME 95 fL (80-96); MONOCYTES # (AUTO) 0.6 K/uL (0.1-1.30); MONOCYTES % (AUTO) 16.6 % (2.0-12.0); NEUTROPHILS # (AUTO) 2.5 K/uL (1.8-8.9); NEUTROPHILS % (AUTO) 68.8 % (43.0-81.0); PLATELET COUNT (AUTO) 59 K/uL (150-450); RED BLOOD CELL COUNT(AUTO) 3.63 MIL/uL (4.5-6.0); WHITE BLOOD COUNT (AUTO) 3.7 K/uL (4.3-11.0)
--- NOTE | 2022-08-13 06:39 | NUR ---
EDUCATIONAL PROGRAMMING DIRECTOR CLOSING NOTES - PATIENT RESTING IN BED, ABLE TO VERBALIZE NEEDS. NO SOB OR NOTED. FREQUENT REORIENTATION NEEDED. DENIES ANY PAIN. AFEBRILE. ON TELE MONITOR READING SINUS TACHYCARDIA AT 102 BPM. EXPLAINED THAT HE NEEDS TO BE ON BED REST SINCE HIS HEART RATE GOES UP TO 160 BPM. LEFT ANTECUBITAL IV ACCESS INTACT, PATENT AND FLUSHING. WOUND CARE RENDERED. NO ACTIVE BLEEDING IN THE LEFT EYEBROW LACERATION. FREQUENT VISUAL CHECKS DONE. ALL DUE MEDS GIVEN AND NEEDS ATTENDED. SEIZURE AND SAFETY PRECAUTIONS MAINTAINED. WILL ENDORSE TO NEXT SHIFT FOR SHANNA.
[2022-08-13 06:50] LABS: CALCIUM, SERUM 9.3 mg/dL (8.5-10.1); CREATININE 0.7 mg/dL (0.6-1.3); MAGNESIUM 1.6 mg/dL (1.8-2.4)
[2022-08-13 06:56] LABS: THYROID STIMULATING HORMONE 0.812 uIU/mL (0.358-3.74)
[2022-08-13 07:37] LABS: BAND % (MANUAL) 2 % (0.0-5.0); EOSINOPHILS % (MANUAL) 2 % (0-4); LYMPHOCYTES % (MANUAL) 11 % (16-48); MONOCYTES % (MANUAL) 14 % (0-11.0); NEUTROPHILS % (MANUAL) 71 (42-76)
--- NOTE | 2022-08-13 07:45 | NUR ---
BANQUET LINE COOK OPENING NOTE RECEIVED PATIENT SLEEPING IN BED, EASILY BEING AROUSED. A/O X 2-3. ABLE TO MAKE NEEDS KNOWN. BREATHING EVEN AND NON-LABORED ON ROOM AIR. NOT IN APPARENT DISTRESS. NO COMPLAINTS OF PAIN AT THIS TIME. ON EXTERNAL PARTS MANAGER READING SINUS TACHYCARDIA AT 103 BPM. IV ACCESS LEFT ANTECUBITAL #20G WITH D5 1/2NS RUNNING AT 75 ML/HR. NO S/S OF INFILTRATION NOTED. LEFT EYE HEMATOMA WITH DRY DRESSING OVER THE EYEBROW NOTED. SIDE RAILS PADDED FOR SEIZURE PRECAUTION. SAFETY MEASURES IN PLACE: BED LOCKED AND IN LOW POSITION, SEIZURE AND SAFETY PRECAUTIONS IN PLACE, SIDE RAILS UP X3, BED ALARM ON, CALL LIGHT WITHIN REACH. WILL CONTINUE TO MONITOR.
[2022-08-13] MEDS: PANTOPRAZOLE 40 MG TABLET.DR PO SCH (08:14)
[2022-08-13] MEDS: FOLIC ACID 1 MG TABLET PO SCH (08:15)
[2022-08-13] MEDS: MULTIVITAMINS,THERAGRAN 1 UDTAB TABLET PO SCH (08:15)
[2022-08-13] MEDS: METOPROLOL SUCCINATE 50 MG TAB.SR.24H PO SCH (08:15)
[2022-08-13] MEDS: LISINOPRIL (10MG) 10 MG TABLET PO SCH (08:15)
[2022-08-13] MEDS: FERROUS SULFATE (325 MG) 325 MG/TAB TABLET PO SCH (08:15)
[2022-08-13 08:27] VITALS: BP 142/104
[2022-08-13] MEDS ORDERED: POTASSIUM CHLORIDE 20 MEQ TAB.PRT.SR PO ONE (10:00)
[2022-08-13] MEDS: Magnesium 1GM/D5W 100ML PREMIX 100 ML IV SCH ×2 (11:41→12:54)
[2022-08-13 12:18] VITALS: BP 129/95
[2022-08-13 16:26] VITALS: BP 142/101
--- NOTE | 2022-08-13 18:45 | NUR ---
PRECISION ASSEMBLER CLOSING NOTE PATIENT RESTING IN BED, ABLE TO MAKE NEEDS KNOWN. PT IS ON RA BREATHING EVEN AND NON LABORED. NO SOB NOTED. DENIES ANY PAIN. AFEBRILE. ON EXTERNAL GAS MAKER HELPER READING SR @ 97 BPM. HAS LEFT ANTECUBITAL IV ACCESS #20G WITH D5 1/2 NS RUNNING AT 75 ML/HR. WOUND CARE RENDERED. NO ACTIVE BLEEDING IN THE LEFT EYEBROW LACERATION. ALL DUE MEDS GIVEN AND NEEDS ATTENDED. SEIZURE AND SAFETY PRECAUTIONS MAINTAINED. BED IN LOCKED, LOWEST POSITION, SIDE RAILS UPX3, PADDED. BED ALARM ON. CALL LIGHT AND BEDSIDE TABLE WITHIN EASY REACH. WILL ENDORSE TO NEXT SHIFT FOR SHANNA.
--- NOTE | 2022-08-13 19:50 | NUR ---
TEL RN OPENING NOTES RECEIVED PATIENT IN BED AWAKE, ALERT AND ORIENTED. A/O X 4. ABLE TO MAKE NEEDS KNOWN. ON ROOM AIR, BREATHING EVEN AND UNLABORED, NO SIGN OS DISTRESS OR SOB NOTED. PATIENT ON EXTERNAL POOL HALL INSPECTOR READING SR @ 97 BPM. IV ACCESS LAC #20G RUNNING D5 1/2 NS @ 75 ML/HR. WILL MAINTAIN SEIZURE AND SAFETY PRECAUTIONS WITH BED ON LOWEST LOCKED POSITION. SIDE RAILS UP X 3. BED ALARM ON. CALL LIGHT AND TABLE WITHIN EASY REACH. WILL CONTINUE WITH THE PLAN OF CARE.
[2022-08-13 20:00] VITALS: BP 147/99
[2022-08-14] VITALS: BP 143/71
[2022-08-14 04:00] VITALS: BP 141/88
[2022-08-14 06:13] LABS: BASOPHILS # (AUTO) 0.1 K/uL (0.0-0.2); BASOPHILS % (AUTO) 1.4 % (0.0-2.0); EOSINOPHILS % (AUTO) 2.6 % (0.0-6.0); HEMATOCRIT 32 % (39-51); HEMOGLOBIN 10.8 g/dL (13.5-17.5); LYMPHOCYTES # (AUTO) 0.5 K/uL (0.8-4.8); LYMPHOCYTES % (AUTO) 13.9 % (20.0-44.0); MEAN CORPUSCULAR HGB CONC 33 g/dl (31.0-36.0); MEAN CORPUSCULAR VOLUME 95 fL (80-96); MONOCYTES # (AUTO) 0.7 K/uL (0.1-1.30); MONOCYTES % (AUTO) 16.9 % (2.0-12.0); NEUTROPHILS # (AUTO) 2.6 K/uL (1.8-8.9); NEUTROPHILS % (AUTO) 65.2 % (43.0-81.0); PLATELET COUNT (AUTO) 66 K/uL (150-450); WHITE BLOOD COUNT (AUTO) 3.9 K/uL (4.3-11.0)
[2022-08-14 06:29] LABS: ALBUMIN 3.7 g/dL (3.4-5.0); BILIRUBIN,TOTAL 2.5 mg/dL (0.2-1.0); CREATININE 0.6 mg/dL (0.6-1.3); MAGNESIUM 1.7 mg/dL (1.8-2.4); PHOSPHORUS 2.9 mg/dL (2.5-4.9); POTASSIUM 3.1 mmol/L (3.5-5.1); TOTAL PROTEIN, SERUM 7.4 g/dL (6.4-8.2)
[2022-08-14] MEDS: IV D5/0.45 NACL 1,000 ML IV PRN (06:41)
--- NOTE | 2022-08-14 07:37 | NUR ---
SHIPYARD PAINTER OPENING NOTES RECEIVED PATIENT AWAKE IN BED, A/O X 4. ABLE TO MAKE NEEDS KNOWN. ON ROOM AIR, BREATHING EVEN AND UNLABORED, NO SIGN OF DISTRESS OR SOB NOTED. PATIENT ON EXTERNAL BACK MAKER READING SR @ 98 BPM. IV ACCESS LAC #20G RUNNING D5 1/2 NS @ 75 ML/HR. WILL MAINTAIN SEIZURE AND SAFETY PRECAUTIONS WITH BED ON LOWEST LOCKED POSITION. SIDE RAILS UP X 3. BED ALARM ON. CALL LIGHT AND TABLE WITHIN EASY REACH. WILL CONTINUE TO MONITOR PATIENT.
[2022-08-14] MEDS: PANTOPRAZOLE 40 MG TABLET.DR PO SCH (07:44)
[2022-08-14 08:00] VITALS: BP 156/104
--- NOTE | 2022-08-14 08:20 | NUR ---
WOUND CARE CONSULT: PT PRESENTS WITH LEFT EYEBROW SUTURED LACERATION WITH CRUSTING AND DISCOLORATION AROUND EYE, PRESENT ON ADMISSION. NO ACTIVE DRAINAGE NOTED. PT IS INDEPENDENT WITH BED MOBILITY AND IS CONTINENT. WILL SEE PRN.
[2022-08-14] MEDS: LISINOPRIL (10MG) 10 MG TABLET PO SCH (08:29)
[2022-08-14 08:31] VITALS: BP 156/104
[2022-08-14] MEDS: FERROUS SULFATE (325 MG) 325 MG/TAB TABLET PO SCH (08:31)
[2022-08-14] MEDS: FOLIC ACID 1 MG TABLET PO SCH (08:31)
[2022-08-14] MEDS: METOPROLOL SUCCINATE 50 MG TAB.SR.24H PO SCH (08:31)
[2022-08-14] MEDS: MULTIVITAMINS,THERAGRAN 1 UDTAB TABLET PO SCH (08:31)
[2022-08-14] MEDS ORDERED: THIA100T88 PO (08:51)
--- NOTE | 2022-08-14 10:45 | NUR ---
RN NOTES PT NOTED WITH LOW LEVEL POTASSIUM 3.1 TODAY. ADMINISTERED K-DUR 40 MEQ ORDERED.
[2022-08-14] MEDS ORDERED: POTASSIUM CHLORIDE 20 MEQ TAB.PRT.SR PO ONE (11:00)
[2022-08-14] MEDS: Magnesium 1GM/D5W 100ML PREMIX 100 ML IV SCH ×4 (11:00→12:06)
--- NOTE | 2022-08-14 12:00 | NUR ---
SS Consult: SS Consult requested for alcohol dependence. The pt. is a 47-year-old male pt. who was admitted to [facility] due to witnessed seizure at home per EMR. Per EMR, the pt. has Hx. of Alcoholism. Upon SS consult, the pt. is Alert & Oriented x 4 and makes good eye contact. The pt. appears unkempt. Pt. has depressed mood & affect. Pt.s speech is clear and thought process is WNL. Pt. remained calm & cooperative throughout interview. Pt. denies SI/HI and states denies hallucinations. SW explored pt.s living situation. Per pt. he lives at home [[address] [place] [address] [address] [facility] [place] [address]; [phone]] with his and his mother. SW explored pt.s drug & ETOH use. Pt. he drinks about 12 beers a day and sometimes a takes about a 3 day break. SW completed brief alcohol dependence intervention and pt. refused referral to rehab. SW provided pt. with alcohol dependence referrals and pt. accepted them. Per pt. he has been to [facility] abut 4 times in the past. The pt. stated he is independent with ambulation and all his ADLs and does not receive any financial assistance. Plan: SW provided pt. with the following addiction resources and pt. accepted them. SW provided pt. with bus TAP card so that he may get home. ADDICTION RESOURCES For Drugs and Alcohol [facility] sober living Referrals For Rehabilitation once sober Address:[address] [place] [phone] [facility] Rehabilitation Program [address] [place] [address] Detox/residential [facility] Substance Abuse Helpline ([facility]) Outpatient, residential treatment, recovery support for youth/adults [facility] www.actionfamilycounsPopular Pays.DocuTAP [facility] [place] Teen programs for drug/alcohol education and support Stephany [place]. Program for adults, sliding scale provides support and education SaydaSpaceCurve www.Nitro PDF.org [place]; Detox/residential treatment programs; transition to sober living [facility] www.cri-help.org [place]; Outpatient and residential treatment programs; transition to sober living [facility] TEL: [phone] [facility] Gokul Chaney; Outpatient education and supportive programs for teens and adults [facility] www.oasiswomensrecneosho memorial regional medical centery.org [place]; Residential treatment and work program for females only [facility] www.Mobile Learning Networks.Dianwoba [place]: Outpatient/residential treatment program for teens and young adults [facility] www.[facility].org [place] Detox, inpatient, outpatient for adults and youth [facility], [facility]. [place]; Outpatient programs and referrals to community residential programs. Alcoholics Anonymous -SFV information and meeting and scheduleswww.aa-intergroup.org Yn-Vtdj-Ajcfnka https://al-anon.org/ [place] support groups for family of alcoholics. Marijuana Anonymous www.madistrict6.org -SFV listing of meetings Narcotics Anonymous www.na.org SOBER LIVING RESOURCES [facility] www.soberhousing.net A non-profit agency that provides resources to recovery and sober living homes throughout [facility] Sober Living Homes: A Work in Progress, Daily [facility] cicayda [place] [facility], [place] [facility] So[facility] Living Homes: [facility] x [phone] [place], [place] [facility] ScheduleSoftSaint [facility] Sober Living Homes: [facility] Counseling--Outpatient [facility] [address] [place] [address] [place] [address] (Specializes in in-depth psychotherapy for emotional distress: anxiety, depression, interpersonal conflicts, life transitions, childhood abuse) [facility] [address] [place] [address] (Assist with solving problem marital difficulties, separation & divorce, aging parents, & grief, chronic & terminal illness) [facility] [address] [place] [address] (Deal with loss & grief, anxiety, marital difficulties) Homebound/Mental Health Services [address] [facility] [address] [place] [address] (Provide in-home mental services to people who are incapable of leaving their homes) Organization for Needs of the Elderly Senior Service/Resource Center [address] [place] [address] [facility] [address] [place] [address] Mental Health Services [facility] [address] [place] [address] Services: Outpatient therapy for children, teens, young adults, adults, older adults, and families; Psychiatric services, medication support Psychiatric Outpatient Services [facility] Partial Hospitalization and Intensive Outpatient Program (Managed Care and [place] Only)[address] [facility] [phone] [facility] Partial Hospitalization and Outpatient [id number] [facility] [address] [place], [place] [phone] [facility] Spr87545 [facility] [address] [place], [place] [phone] [facility] Partial Hospitalization and Outpatient Rswvtig[address]486 [place], [phone] Crisis and Hotline Telephone Numbers 24-Hour service unless stated [place] Crisis Hotlines: [facility] Mental Health/Crisis Line........382.180.8914 Suicide Prevention Center (24 Hours).......[phone] Suicide Prevention Crisis Center.......[phone] (24 Hours) Assaults Against Women Hotline.........104.527.3481 (24 Hours -- [facility]) Women and Children Crisis Long Term...........[phone] (24 Hours) Child Abuse Hotline............429.779.7430 [facility] (24 Hours)..........[phone] Alcoholics Anonymous (24 Hours)..........[phone] Cocaine Anonymous (24 Hours)............233.785.1052 Narcotics Anonymous (24 Hours)..........[phone] Mary Diehl [facility] [address], [place], [place] [address]
--- NOTE | 2022-08-14 12:08 | NUR ---
RN NOTES PT WITH LOW LEVEL MAGNESIUM 1.7 TODAY WITH ORDER TO TRANSFUSED MAGNESIUM 1MG/100ML X2 DOSES. PATIENT REFUSED THE LAST DOSE/BAG TO BE INFUSED DESPITE EXPLAINING RISKS AND BENEFITS. HE STATED THAT HE JUST WANTED TO BE DISCHARGED RADHA.
--- NOTE | 2022-08-14 12:18 | NUR ---
DISCHARGE NOTES PATIENT DISCHARGE HOME IN STABLE CONDITION. A/O X4. ABLE TO MAKE NEEDS KNOWN. PATIENT IS BREATHING EVENLY AND UNLABORED ON ROOM AIR, NO SIGNS OF DISTRESS NOTED. PT WITH LEFT AND RIGHT EYE HEMATOMA AND LEFT BROW LACERATION, PHOTO TAKEN AND FILED ON HIS CHART. SOCIAL SERVICE CONSULT DONE. DISCHARGE INSTRUCTIONS GIVEN VERBALLY AND IN WRITTEN FORM, PT VERBALIZED UNDERSTANDING. PATIENT ALL BELONGINGS ACCOUNTED FOR, BELONGING SHEET SIGNED BY PT. IV ACCESS ON LFA G#22 REMOVED, DRY DRESSING APPLIED AT SITE, NO SIGNS OF BLEEDING NOTED. NAME ARMBAND REMOVED. PATIENT LEFT UNIT AT 1215 ACCOMPANIED BY NEIDA HIRSCH VIA WHEELCHAIR. PATIENT GIVEN TAP CARD FOR TRANSPORTATION TO GO HOME. CHARGE NURSE AWARE OF D/C.
[2022-08-14 16:45] LABS: BAND % (MANUAL) 1 % (0.0-5.0); EOSINOPHILS % (MANUAL) 4 % (0-4); LYMPHOCYTES % (MANUAL) 18 % (16-48); MONOCYTES % (MANUAL) 13 % (0-11.0); NEUTROPHILS % (MANUAL) 64 (42-76)
== END 2022-08-14 12:10 | disposition home or self-care (01) | DRG 53 ==
LOC: ER 09:21 → TELE 13:03 → MED 08-14 11:51
PROVIDERS: ATTEND Nurse Practitioner Acute Care
DX: G40.909 Epilepsy, unspecified, not intractable, without status epilepticus (principal); G93.41 Metabolic encephalopathy; D69.59 Other secondary thrombocytopenia; K70.30 Alcoholic cirrhosis of liver without ascites; E87.1 Hypo-osmolality and hyponatremia; I10 Essential (primary) hypertension; D50.9 Iron deficiency anemia, unspecified; E87.6 Hypokalemia; E83.42 Hypomagnesemia; E78.5 Hyperlipidemia, unspecified; F10.10 Alcohol abuse, uncomplicated; K21.9 Gastro-esophageal reflux disease without esophagitis; Z20.822 Contact with and (suspected) exposure to COVID-19
CPT/HCPCS: 36415; 70450-TC; 71045-TC; 80048-TC; 80053-TC; 80061-TC; 80076-TC; 81001; 83735-TC; 84100-TC; 84443-TC; 85025-TC; 86850-TC; 87081-TC; 87086-TC; A4223; A6403; C9803; G0378; G0480; J2060; J3475; J3490; J7030

== ENCOUNTER 2022-08-21 02:20 | Emergency (ER) | payer OTHER ==
[~2022-08-21] VITALS: Ht 185.4 cm; Wt 77.1 kg
[~2022-08-21 02:20] MED LIST changes: -ATOR40TA PO; -CYCL5TAB PO; +FOLI0.4T6 PO; +IBUP-1955 PO; -IBUP-1957 PO; -LEVE1000 PO; -LEVO500T90 PO; +POLY17PO4 PO
--- NOTE | 2022-08-21 02:45 | NUR ---
YOLIS 839 FROM HOME FOR ETOH. PT A, [facility] ON TRIAGE AND REPORTED HE IS HERE TO REMOVE STITCHES ON LEFT FOREHEAD. PATIENT IS DRUNK BUT AROUSABLE. ABLE TO RESPONDS TO QUESTIONS. PLACED COMFORTABLY IN BED. VITALS CHECKED.
--- NOTE | 2022-08-21 03:00 | NUR ---
SOFT C COLLAR APPLIED TO NECK
--- NOTE | 2022-08-21 03:05 | NUR ---
BROUGHT TO CT DEPT
--- NOTE | 2022-08-21 04:00 | NUR ---
REMOVAL OF SUTURES DONE
--- NOTE | 2022-08-21 05:54 | NUR ---
Patient discharged to home in stable condition. Written and verbal after care instructions given. Patient verbalizes understanding of instruction.
[2022-08-21 05:55] VITALS: BP 114/75
== END 2022-08-21 05:55 | disposition home or self-care (01) ==
LOC: ER 02:22
DX: S01.81XD Laceration without foreign body of other part of head, subsequent encounter (principal); F10.129 Alcohol abuse with intoxication, unspecified; I10 Essential (primary) hypertension; Z79.899 Other long term (current) drug therapy; X58.XXXD Exposure to other specified factors, subsequent encounter; Y90.9 Presence of alcohol in blood, level not specified
CPT/HCPCS: 70450-TC; 70486-TC; 72125-TC

== ENCOUNTER 2022-12-12 19:33 | Inpatient (IN) | payer OTHER ==
[~2022-12-12] VITALS: Ht 185.4 cm; Wt 76.7 kg
[~2022-12-12 19:33] MED LIST changes: -THIA100T88 PO
[2022-12-12] MEDS ORDERED: PANTOPRAZOLE 40 MG VIAL ONE (20:53)
[2022-12-12] MEDS ORDERED: PANTOPRAZOLE 40 MG VIAL IV ONE (21:00)
[2022-12-12 21:03] LABS: BASOPHILS # (AUTO) 0.1 K/uL (0.0-0.2); BASOPHILS % (AUTO) 1.2 % (0.0-2.0); EOSINOPHILS # (AUTO) 0.3 K/uL (0.0-0.7); EOSINOPHILS % (AUTO) 2.6 % (0.0-6.0); HEMATOCRIT 36 % (39-51); HEMOGLOBIN 12.2 g/dL (13.5-17.5); LYMPHOCYTES % (AUTO) 8.6 % (20.0-44.0); MEAN CORPUSCULAR HEMOGLOBIN 35 PG (26.0-33.0); MEAN CORPUSCULAR HGB CONC 34 g/dl (31.0-36.0); MEAN CORPUSCULAR VOLUME 104 fL (80-96); MONOCYTES # (AUTO) 0.9 K/uL (0.1-1.30); MONOCYTES % (AUTO) 8.3 % (2.0-12.0); NEUTROPHILS # (AUTO) 8.8 K/uL (1.8-8.9); NEUTROPHILS % (AUTO) 79.3 % (43.0-81.0); PLATELET COUNT (AUTO) 172 K/uL (150-450); RED BLOOD CELL COUNT(AUTO) 3.49 MIL/uL (4.5-6.0); RED CELL DISTRIBUTION WIDTH 15.2 % (11.5-15.0); WHITE BLOOD COUNT (AUTO) 11.1 K/uL (4.3-11.0)
[2022-12-12 21:21] LABS: INR 1.52 (0.91-1.10); PARTIAL THROMBOPLASTIN TIME 35.6 SEC (24.3-34.3); PROTHROMBIN TIME 15.6 SECS (9.2-11.1)
[2022-12-12 21:34] LABS: EOSINOPHILS % (MANUAL) 5 % (0-4); LYMPHOCYTES % (MANUAL) 6 % (16-48); MONOCYTES % (MANUAL) 6 % (0-11.0); NEUTROPHILS % (MANUAL) 83 (42-76); PLATELET ESTIMATE ADEQUATE
[2022-12-12 21:38] LABS: ALANINE AMINOTRANSFERASE 74 U/L (12-78); ALBUMIN 2.3 g/dL (3.4-5.0); ALKALINE PHOSPHATASE 434 U/L (46-116); ASPARTATE AMINOTRANSFERASE 90 U/L (15-37); BILIRUBIN,DIRECT 7.9 mg/dL (0.0-0.2); BILIRUBIN,TOTAL 9.5 mg/dL (0.2-1.0); CALCIUM, SERUM 8.2 mg/dL (8.5-10.1); CARBON DIOXIDE 26 mmol/L (21-32); CHLORIDE 94 mmol/L (98-107); CREATININE 0.5 mg/dL (0.6-1.3); GLUCOSE 127 mg/dL (74-106); LIPASE 205 U/L (73-393); POTASSIUM 3.3 mmol/L (3.5-5.1); SODIUM SERUM 126 mmol/L (136-145); TOTAL PROTEIN, SERUM 6.4 g/dL (6.4-8.2); UREA NITROGEN, BLOOD 4 mg/dL (7-18)
[2022-12-12] MEDS ORDERED: IV NS 0.9% 1,000 ML IV ONE (22:00)
[2022-12-12] MEDS ORDERED: Z GUARD REMEDY 4 OZ OINT TP PRN (23:30)
[2022-12-12] MEDS ORDERED: ZOLPIDEM TARTRATE 5 MG TABLET PO PRN (23:30)
[2022-12-12] MEDS ORDERED: METOCLOPRAMIDE HCL 10 MG/2 ML VIAL IV PRN (23:30)
[2022-12-12] MEDS ORDERED: ACETAMINOPHEN 325 MG TABLET PO PRN (23:30)
[2022-12-12] MEDS ORDERED: MAGNESIUM HYDROXIDE 30 ML UDC PO PRN (23:30)
[2022-12-12] MEDS ORDERED: MAG HYDROX/AL HYDROX/SIMETH 30 ML UDC PO PRN (23:30)
[2022-12-12] MEDS ORDERED: ONDANSETRON HCL/PF 4 MG/2 ML VIAL IVP PRN (23:30)
[2022-12-13] VITALS: BP 143/96; TEMP 98.9; O2SAT 100
[2022-12-13] MEDS: IV NS 0.9% 1,000 ML IV PRN ×2 (00:20→17:05)
[2022-12-13 04:00] VITALS: BP 156/94; TEMP 99; O2SAT 100
[2022-12-13 07:36] LABS: ALBUMIN 2.1 g/dL (3.4-5.0); BILIRUBIN,TOTAL 9.9 mg/dL (0.2-1.0); CALCIUM, SERUM 8.2 mg/dL (8.5-10.1); CREATININE 0.4 mg/dL (0.6-1.3); MAGNESIUM 1.6 mg/dL (1.8-2.4); PHOSPHORUS 2.8 mg/dL (2.5-4.9); POTASSIUM 3.2 mmol/L (3.5-5.1); TOTAL PROTEIN, SERUM 5.8 g/dL (6.4-8.2)
[2022-12-13] MEDS: PANTOPRAZOLE 40 MG TABLET.DR PO SCH (07:52)
[2022-12-13] MEDS ORDERED: MAGNESIUM OXIDE 400 MG TABLET PO ONE (08:00)
[2022-12-13] MEDS: METOPROLOL SUCCINATE 50 MG TAB.SR.24H PO SCH (08:45)
[2022-12-13] MEDS: POLYETHYLENE GLYCOL 3350 17 GM POWD.PACK PO SCH (08:45)
[2022-12-13] MEDS: ASCORBIC ACID 500 MG TABLET PO SCH (08:46)
[2022-12-13] MEDS: LISINOPRIL (10MG) 10 MG TABLET PO SCH (08:47)
[2022-12-13] MEDS: FERROUS SULFATE (325 MG) 325 MG/TAB TABLET PO SCH (08:47)
[2022-12-13] MEDS: MULTIVITAMINS,THERAGRAN 1 UDTAB TABLET PO SCH (08:47)
[2022-12-13] MEDS: FOLIC ACID 1 MG TABLET PO SCH (08:47)
[2022-12-13] MEDS: POTASSIUM CHLORIDE 20 MEQ TAB.PRT.SR PO SCH ×2 (10:13→11:24)
[2022-12-13 12:00] VITALS: BP 135/95; TEMP 98.2; O2SAT 98
[2022-12-14] VITALS: BP 154/96; TEMP 98.7; O2SAT 98
[2022-12-14 06:32] LABS: CALCIUM, SERUM 8.9 mg/dL (8.5-10.1); CREATININE 0.6 mg/dL (0.6-1.3); MAGNESIUM 1.9 mg/dL (1.8-2.4); POTASSIUM 3.2 mmol/L (3.5-5.1)
[2022-12-14 08:00] VITALS: BP 128/83; TEMP 98.4; O2SAT 99
[2022-12-14] MEDS: PANTOPRAZOLE 40 MG TABLET.DR PO SCH (08:18)
[2022-12-14] MEDS: FOLIC ACID 1 MG TABLET PO SCH (08:43)
[2022-12-14] MEDS: ASCORBIC ACID 500 MG TABLET PO SCH (08:43)
[2022-12-14] MEDS: MULTIVITAMINS,THERAGRAN 1 UDTAB TABLET PO SCH (08:43)
[2022-12-14] MEDS: FERROUS SULFATE (325 MG) 325 MG/TAB TABLET PO SCH (08:43)
[2022-12-14] MEDS: POTASSIUM CHLORIDE 20 MEQ TAB.PRT.SR PO SCH ×2 (08:43→10:22)
[2022-12-14 08:44] VITALS: BP 128/83
[2022-12-14] MEDS: LISINOPRIL (10MG) 10 MG TABLET PO SCH (08:44)
[2022-12-14] MEDS: METOPROLOL SUCCINATE 50 MG TAB.SR.24H PO SCH (08:44)
[2022-12-14] MEDS: POLYETHYLENE GLYCOL 3350 17 GM POWD.PACK PO SCH (08:45)
== END 2022-12-14 10:50 | disposition home or self-care (01) | DRG 426 ==
LOC: ER 19:39 → TELE1 23:19 → MEDSG1 12-13 01:25
PROVIDERS: ADMIT Nurse Practitioner Acute Care; ATTEND Internal Medicine
DX: E87.1 Hypo-osmolality and hyponatremia (principal); K22.6 Gastro-esophageal laceration-hemorrhage syndrome; K76.6 Portal hypertension; K70.30 Alcoholic cirrhosis of liver without ascites; D64.9 Anemia, unspecified; E87.6 Hypokalemia; I10 Essential (primary) hypertension; K31.89 Other diseases of stomach and duodenum; K31.84 Gastroparesis; E78.5 Hyperlipidemia, unspecified; E83.42 Hypomagnesemia; F10.10 Alcohol abuse, uncomplicated; Z87.11 Personal history of peptic ulcer disease
CPT/HCPCS: 36415; 71045-TC; 80048-TC; 80053-TC; 80076-TC; 82533; 83690-TC; 83735-TC; 84100-TC; 84443-TC; 84484-TC; 85025-TC; 85730-TC; 86850-TC; A4223; C9113; G0378; J7030

== ENCOUNTER 2023-01-07 08:57 | Emergency (ER) | payer OTHER ==
[~2023-01-07] VITALS: Ht 170.2 cm; Wt 78.9 kg
[2023-01-07 09:43] LABS: BASOPHILS # (AUTO) 0.1 K/uL (0.0-0.2); BASOPHILS % (AUTO) 1.4 % (0.0-2.0); EOSINOPHILS # (AUTO) 0.2 K/uL (0.0-0.7); EOSINOPHILS % (AUTO) 3.5 % (0.0-6.0); HEMATOCRIT 37 % (39-51); HEMOGLOBIN 12.3 g/dL (13.5-17.5); LYMPHOCYTES # (AUTO) 0.9 K/uL (0.8-4.8); LYMPHOCYTES % (AUTO) 16.7 % (20.0-44.0); MEAN CORPUSCULAR HEMOGLOBIN 35 PG (26.0-33.0); MEAN CORPUSCULAR HGB CONC 34 g/dl (31.0-36.0); MEAN CORPUSCULAR VOLUME 103 fL (80-96); MONOCYTES # (AUTO) 0.6 K/uL (0.1-1.30); NEUTROPHILS # (AUTO) 3.4 K/uL (1.8-8.9); NEUTROPHILS % (AUTO) 67.4 % (43.0-81.0); PLATELET COUNT (AUTO) 119 K/uL (150-450); RED BLOOD CELL COUNT(AUTO) 3.55 MIL/uL (4.5-6.0); RED CELL DISTRIBUTION WIDTH 14.7 % (11.5-15.0); WHITE BLOOD COUNT (AUTO) 5.1 K/uL (4.3-11.0)
[2023-01-07 09:58] LABS: INR 1.38 (0.91-1.10); PARTIAL THROMBOPLASTIN TIME 31.4 SEC (24.3-34.3); PROTHROMBIN TIME 14.2 SECS (9.2-11.1)
[2023-01-07 09:59] LABS: ALBUMIN 2.1 g/dL (3.4-5.0); BILIRUBIN,DIRECT 3.1 mg/dL (0.0-0.2); BILIRUBIN,TOTAL 3.7 mg/dL (0.2-1.0); CALCIUM, SERUM 8.6 mg/dL (8.5-10.1); CREATININE 0.9 mg/dL (0.6-1.3); POTASSIUM 3.8 mmol/L (3.5-5.1); TOTAL PROTEIN, SERUM 6.1 g/dL (6.4-8.2)
[2023-01-07 10:22] LABS: EOSINOPHILS % (MANUAL) 5 % (0-4); LYMPHOCYTES % (MANUAL) 11 % (16-48); MONOCYTES % (MANUAL) 8 % (0-11.0); NEUTROPHILS % (MANUAL) 76 (42-76)
[2023-01-07 10:23] LABS: PLATELET ESTIMATE DECREASED
[2023-01-07 10:25] LABS: APPEARANCE,URINE CLEAR (CLEAR); BILIRUBIN,URINE 2+ (NEGATIVE); BLOOD, URINE NEGATIVE Ery/uL (NEGATIVE); COLOR,URINE YELLOW (YELLOW); KETONES,URINE NEGATIVE (NEGATIVE); LEUKOCYTE ESTERASE ,URINE NEGATIVE (NEGATIVE); NITRITE, URINE NEGATIVE (NEGATIVE); PH,URINE 6.5 (5.0-8.0); PROTEIN,URINE NEGATIVE (NEGATIVE); UGLUCOSE NEGATIVE (NEGATIVE)
[2023-01-07 11:24] LABS: ADD URINE CULTURE NO; BACTERIA,URINE Few /HPF (None Seen); RBC,URINE NONE SEEN /HPF (0-2); SQUAMOUS EPITHELIAL CELL,UR None Seen /HPF (None Seen); WBC,URINE 0-2 /HPF (0-3)
[2023-01-07 11:36] VITALS: BP 113/71; TEMP 98.1; O2SAT 100
== END 2023-01-07 11:36 | disposition home or self-care (01) ==
LOC: ER 08:59
DX: R18.8 Other ascites (principal); K74.60 Unspecified cirrhosis of liver; I10 Essential (primary) hypertension; Z79.899 Other long term (current) drug therapy
CPT/HCPCS: 36415; 76705-TC; 80048-TC; 80076-TC; 81001; 83690-TC; 85025-TC; 85730-TC